=== PATIENT | female | born 1955 | race Caucasian/White ===

== ENCOUNTER 2017-07-05 05:38 | Outpatient (CLI) | payer SELFPAY ==
[~2017-07-05] VITALS: Ht 175.3 cm; Wt 90.7 kg
[~2017-07-05 05:38] MED LIST: CRESTOR40 MG PO; LISI5TAB PO; METF-380 PO; NFPRILOC40 PO; SERT50TA PO
[2017-07-05] MEDS ORDERED: AMLO5TAB2 PO ×2 (10:24)
[2017-07-05] MEDS ORDERED: GLIM4TAB PO ×2 (10:24)
[2017-07-05] MEDS ORDERED: METF500T4 PO ×2 (10:24)
[2017-07-05] MEDS ORDERED: LEVO25TA5 PO ×2 (10:24)
[2017-07-05] MEDS ORDERED: DICL75TA2 PO ×2 (10:24)
[2017-07-05] MEDS ORDERED: OMEP20TA7 PO ×2 (10:24)
[2017-07-05] MEDS ORDERED: ATEN50TA PO ×2 (10:24)
[2017-07-05] MEDS ORDERED: SERT100T8 PO ×2 (10:24)
[2017-07-05] MEDS ORDERED: ROSU10TA24 PO ×2 (10:24)
[2017-07-05] MEDS ORDERED: CHOL10003 PO ×2 (10:24)
[2017-07-05] MEDS ORDERED: LISI40TA PO ×2 (10:24)
[2017-07-08] MEDS ORDERED: CHOL20002 PO ×2 (08:57)
[2017-07-08] MEDS ORDERED: PNV1TABL81 PO ×2 (08:57)
[2017-07-08] MEDS ORDERED: TURM538C PO ×2 (08:57)
== END 2017-07-05 10:28 ==
LOC: PREOP 05:38
PROVIDERS: ATTEND Surgery
DX: Z01.818 Encounter for other preprocedural examination (principal); K63.5 Polyp of colon; Z80.0 Family history of malignant neoplasm of digestive organs

== ENCOUNTER 2017-07-08 08:27 | Day surgery (SDC) | payer OTHER ==
[~2017-07-08] VITALS: Ht 175.3 cm; Wt 90.7 kg
[~2017-07-08 08:27] MED LIST changes: +AMLO5TAB2 PO; +ATEN50TA PO; +CHOL10003 PO; +DICL75TA2 PO; +GLIM4TAB PO; +LEVO25TA5 PO; +LISI40TA PO; +METF500T4 PO; +OMEP20TA7 PO; +ROSU10TA24 PO; +SERT100T8 PO
[2017-07-08] MEDS ORDERED: NS IV 500 ML 500 ML IV PRN (08:31)
--- OUTSIDE RECORDS SUMMARY | 2017-07-08 08:31 | XMS REPORT ---
Author Author NYLA LION Organization [employer]Clinical[employer] Address Unknown Phone Unavailable Care Team Providers Care Acoustic Engineer Name Role Phone NYLA LION CP Unavailable Allergies No Known Allergies Problems Problem Type Condition Code Onset Dates Condition Status Problem Pain in thumb joint with movement of left hand M79.645 Active Problem Mixed hyperlipidemia E78.2 Active Problem Yeast dermatitis B37.2 Active Problem Thyroid mass of unclear etiology E07.89 Active Problem Essential hypertension I10 Active Problem Chronic fatigue R53.82 Active Problem Primary insomnia F51.01 Active Problem Acquired hypothyroidism E03.9 Active Problem History of anemia Z86.2 Active Problem Type 2 diabetes mellitus without complication E11.9 Active Problem Abnormal thyroid blood test R94.6 Active Problem History of thyroid nodule Z86.39 Active Medications Medication Code System Code Instructions Start Date End Date Status Dosage Zoloft [facility] [address]-29 100 MG Orally Once a day 1.5 tablet Results No Known Results Summary Purpose eClinicalWorks Submission
--- OUTSIDE RECORDS SUMMARY | 2017-07-08 08:31 | XMS REPORT ---
Author Author NYLA LION Organization [employer] Address Unknown Phone Unavailable Care Team Providers Care Shake Sawyer Name Role Phone NYLA LION CP Unavailable Allergies No Known Allergies Problems Problem Type Condition Code Onset Dates Condition Status Problem Unspecified vitamin D deficiency 268.9 Active Problem Essential hypertension I10 Active Problem Depression 311 Active Problem History of thyroid nodule Z86.39 Active Problem History of anemia Z86.2 Active Problem Abnormal thyroid blood test R94.6 Active Problem Yeast dermatitis B37.2 Active Problem Pain in thumb joint with movement of left hand M79.645 Active Problem Type 2 diabetes mellitus without complication E11.9 Active Problem Mixed hyperlipidemia E78.2 Active Problem Personal history of colonic polyps V12.72 Active Problem Depressive disorder, not elsewhere classified 311 Active Problem Lumbago 724.2 Active Problem Insomnia, unspecified 780.52 Active Problem Unspecified essential hypertension 401.9 Active Problem Other and unspecified hyperlipidemia 272.4 Active Medications No Known Medications Results No Known Results Summary Purpose eClinicalWorks Submission
--- OUTSIDE RECORDS SUMMARY | 2017-07-08 08:31 | XMS REPORT ---
Author Author NYLA LION [facility] eClinicalWorks Address Unknown Phone Unavailable Care Team Providers Care Handle Sewer Name Role Phone NYLA LION CP Unavailable Allergies No Known Allergies Problems Problem Type Condition Code Onset Dates Condition Status Problem Depressive disorder, not elsewhere classified 311 Active Problem Other and unspecified hyperlipidemia 272.4 Active Problem Insomnia, unspecified 780.52 Active Problem Mixed hyperlipidemia E78.2 Active Problem Yeast dermatitis B37.2 Active Problem Type 2 diabetes mellitus without complication E11.9 Active Problem Depression 311 Active Problem Unspecified vitamin D deficiency 268.9 Active Problem Pain in thumb joint with movement of left hand M79.645 Active Problem Essential hypertension I10 Active Assessment Mixed hyperlipidemia E78.2 Active Assessment Type 2 diabetes mellitus without complication E11.9 Active Problem Lumbago 724.2 Active Assessment Vitamin D deficiency, unspecified E55.9 Active Problem Unspecified essential hypertension 401.9 Active Assessment Fatigue R53.83 Active Problem Personal history of colonic polyps V12.72 Active Medications No Known Medications Procedures Procedure Coding System Code Date ASSAY THYROID STIM HORMONE CPT-4 78894 February 09, 2016 ASSAY OF VITAMIN D CPT-4 75844 February 09, 2016 GLYCATED HEMOGLOBIN TEST CPT-4 45330 February 09, 2016 COMPREHEN METABOLIC PANEL CPT-4 17080 February 09, 2016 LIPID PANEL CPT-4 00847 February 09, 2016 VENIPUNCT, ROUTINE* CPT-4 32676 February 09, 2016 Results Name Result Date Reference Range Unit Abnormality Flag ROUTINE VENIPUNCTURE Summary Purpose eClinicalWorks Submission
--- OUTSIDE RECORDS SUMMARY | 2017-07-08 08:31 | XMS REPORT ---
Author Author NYLA LION [facility] eClinicalWorks Address Unknown Phone Unavailable Care Team Providers Care Legal Summer Intern Name Role Phone NYLA LION Unavailable Allergies, Adverse Reactions, Alerts Substance Reaction Event Type Bactrim diarrhea Drug Allergy Ampicillin Info Not Available Drug Allergy Problems Problem Type Condition Code Onset Dates [...] Active Problem Essential hypertension I10 Active Assessment Essential hypertension I10 Active Assessment Pain in thumb joint with movement of left hand M79.645 Active Assessment Type 2 diabetes mellitus without complication E11.9 Active Problem Lumbago 724.2 Active Assessment Yeast dermatitis B37.2 Active Problem Unspecified essential hypertension 401.9 Active Assessment Mixed hyperlipidemia E78.2 Active Problem Personal history of colonic polyps V12.72 Active Medications Medication Code System Code Instructions Start Date End Date Status Dosage Crestor [facility] [address]-02 10 MG Nov 04, 2014 take 1 tablet (10 mg ) by oral route once daily Lisinopril [facility] 05375700823 40 MG 1 TAKE 1 TABLET BY ORAL ROUTE 1 TIME PER DAY TAKE IN AM Omeprazole [facility] 79622228665 20 MG TAKE 1 CAPSULE (20 MG) BY ORAL ROUTE ONCE DAILY BEFORE A MEAL Clonazepam [facility] 59777809106 1 TAKE 1 TABLET BY MOUTH DAILY AT BEDTIME FOR INSOMNIA Diclofenac Sodium [facility] 96676781364 75 TAKE 1 TABLET BY MOUTH TWICE DAILY NEEDED Vitamin D-3 [facility] 50962-75788 1000 UNIT Orally Twice a day 1 capsule Zyrtec-D [facility] 0 5-120 mg Nov 01, 2014 1 tablet by Oral route 2 times per day Flonase [facility] [address]-89 50 mcg/actuation February 26, 2014 1 sprays by Nasal route 2 times per day in each nostril Glimepiride [facility] [address]-51 4 MG Orally 2 times a day TAKE 1 TABLET BY MOUTH TWICE DAILY Diflucan [facility] [address]-09 100 MG Once a day February 26, 2014 1 tablet by Oral route 1 time per day Zoloft [facility] [address]-77 100 MG Orally Once a day 1.5 tablet MetFORMIN HCl ER [facility] 42735951273 500 TAKE 2 TABLETS BY MOUTH TWICE DAILY Atenolol [facility] 07041935625 50 MG 1 TABLET BY ORAL ROUTE 2 TIMES PER DAY Procedures Procedure Coding System Code Date Office Visit, Est Pt., Level 4 CPT-4 02964 Sep 07, 2015 GLYCATED HEMOGLOBIN TEST CPT-4 80820 Sep 07, 2015 Vital Signs Date/Time: Sep 07, 2015 Temperature 98.2 F Weight 218.4 lbs Height 69 in BMI 32.25 Index Blood Pressure Diastolic 88 mmHg Blood Pressure Systolic 152 mmHg Cardiac Monitoring Heart Rate 80 bpm Results Name Result Date Reference Range Unit Abnormality Flag A1C (IN HOUSE) Summary Purpose eClinicalWorks Submission
--- OUTSIDE RECORDS SUMMARY | 2017-07-08 08:31 | XMS REPORT ---
Author Author NYLA LION Organization [employer] Address Unknown Phone Unavailable Care Team Providers Care Taker Off Drying Kiln Name Role Phone NYLA LION CP Unavailable Allergies No Known Allergies Problems Problem Type Condition ICD-9 Code Onset Dates Condition Status Problem Unspecified essential hypertension 401.9 Active Problem Lumbago 724.2 Active Problem Diabetes mellitus without mention of complication, type II or unspecified type, uncontrolled 250.02 Active Problem Unspecified vitamin D deficiency 268.9 Active Problem Depression 311 Active Problem Depressive disorder, not elsewhere classified 311 Active Problem Personal history of colonic polyps V12.72 Active Problem Other and unspecified hyperlipidemia 272.4 Active Problem Insomnia, unspecified 780.52 Active Medications Medication Code System Code Instructions Start Date End Date Status Dosage Clonazepam [facility] 51869164168 1 TAKE 1 TABLET BY MOUTH DAILY AT BEDTIME FOR INSOMNIA Results No Known Results Summary Purpose eClinicalWorks Submission
--- OUTSIDE RECORDS SUMMARY | 2017-07-08 08:31 | XMS REPORT ---
Author Author NYLA LION [facility] eClinicalWorks Address Unknown Phone Unavailable Care Team Providers Care Underwear Trimmer Name Role Phone NYLA LION CP Unavailable [...] Instructions Start Date End Date Status Dosage Macrobid [facility] [address]-97 100 MG Orally 2 times a day Jul 15, 2015 1 capsule with food Results No Known Results Summary Purpose eClinicalWorks Submission
--- OUTSIDE RECORDS SUMMARY | 2017-07-08 08:31 | XMS REPORT ---
Author Author NYLA LION Organization [facility] Address [address] [place] [address] Care Team Providers Care Spinning Frame Fixer Name Role Phone NYLA LION Unavailable PROBLEMS Type Condition ICD9-CM Code [id number] Code Onset Dates Condition Status SNOMED Code Problem History of anemia Z86.2 Active 510046552 Problem History of thyroid nodule Z86.39 Active 549194818 Problem Abnormal thyroid blood test R94.6 Active 426433908 Problem Vitamin D deficiency, unspecified E55.9 Active 06003123 Problem Dysthymia F34.1 Active 24343763 Problem Acquired hypothyroidism E03.9 Active 209003006 Problem Chronic fatigue R53.82 Active 34530633 Problem History of colon polyps Z86.010 Active 465894420 Problem Primary insomnia F51.01 Active 3964468 Problem Yeast dermatitis B37.2 Active 38132174 Problem Type 2 diabetes mellitus without complication E11.9 Active 55902013 Problem Thyroid mass of unclear etiology E07.89 Active 049531586 Problem Essential hypertension I10 Active 72415049 Problem Mixed hyperlipidemia E78.2 Active 560043581 Problem Pain in thumb joint with movement of left hand M79.645 Active 795854089 ALLERGIES Unknown Allergies SOCIAL HISTORY No smoking Hx information available PLAN OF CARE VITAL SIGNS MEDICATIONS Medication Instructions Dosage Frequency Start Date End Date Duration Status Clonazepam 1MG Orally one time at hs 1 tablet Active RESULTS No Results PROCEDURES No Known procedures IMMUNIZATIONS No Known Immunizations
--- OUTSIDE RECORDS SUMMARY | 2017-07-08 08:31 | XMS REPORT ---
Author Author NYLA LION [facility] eClinicalWorks Address Unknown Phone Unavailable Care Team Providers Care Optical Manufacturing Technician Name Role Phone NYLA LION CP Unavailable [...] Instructions Start Date End Date Status Dosage Flagyl [facility] [address]-43 250 MG Orally 3 times a day Jun 14, 2015Jun 1 tablet Results No Known Results Summary Purpose eClinicalWorks Submission
--- OUTSIDE RECORDS SUMMARY | 2017-07-08 08:31 | XMS REPORT ---
Author Author NYLA LION [facility] eClinicalWorks Address Unknown Phone Unavailable Care Team Providers Care Director Talent Name Role Phone NYLA LION Unavailable Allergies, Adverse Reactions, Alerts Substance Reaction Event Type Bactrim diarrhea Drug Allergy Ampicillin Info Not Available Drug Allergy Problems Problem Type Condition Code Onset Dates Condition Status Problem Insomnia, unspecified 780.52 Active Assessment Vitamin D deficiency, unspecified E55.9 Active Problem Other and unspecified hyperlipidemia 272.4 Active Assessment History of anemia Z86.2 Active Problem Unspecified vitamin D deficiency 268.9 Active Problem Essential hypertension I10 Active Problem Depression 311 Active Problem History of thyroid nodule Z86.39 Active Problem History of anemia Z86.2 Active Assessment Depression 311 Active Assessment Abnormal thyroid blood test R94.6 Active Problem Abnormal thyroid blood test R94.6 Active Assessment History of thyroid nodule Z86.39 Active Problem Yeast dermatitis B37.2 Active Problem Pain in thumb joint with movement of left hand M79.645 Active Problem Type 2 diabetes mellitus without complication E11.9 Active Problem Mixed hyperlipidemia E78.2 Active Assessment Yeast dermatitis B37.2 Active Assessment Essential hypertension I10 Active Assessment Mixed hyperlipidemia E78.2 Active Assessment Type 2 diabetes mellitus without complication E11.9 Active Problem Personal history of colonic polyps V12.72 Active Problem Depressive disorder, not elsewhere classified 311 Active Problem Lumbago 724.2 Active Problem Unspecified essential hypertension 401.9 Active Medications Medication Code System Code Instructions Start Date End Date Status Dosage Clonazepam [facility] 69102178573 1MG TAKE ONE TABLET BY MOUTH ONCE DAILY AT BEDTIME NEEDED Zyrtec-D [facility] 0 5-120 mg Nov 01, 2014 1 tablet by Oral route 2 times per day Diclofenac Sodium [facility] [address]-[address] TAKE ONE TABLET BY MOUTH TWICE DAILY NEEDED Zoloft [facility] [address]-22 100 MG Orally Once a day 1.5 tablet Glimepiride [facility] [address]-60 4 MG Orally 2 times a day TAKE 1 TABLET BY MOUTH TWICE DAILY Diflucan [facility] [address]-03 100 MG Once a day February 26, 2014 1 tablet by Oral route 1 time per day Atenolol [facility] 09496985717 50 MG 1 TABLET BY ORAL ROUTE 2 TIMES PER DAY MetFORMIN HCl ER [facility] 70717646023 500 TAKE 2 TABLETS BY MOUTH TWICE DAILY Lisinopril [facility] 67807773328 40 MG 1 TAKE 1 TABLET BY ORAL ROUTE 1 TIME PER DAY TAKE IN AM Omeprazole [facility] 04871954189 20 MG TAKE 1 CAPSULE (20 MG) BY ORAL ROUTE ONCE DAILY BEFORE A MEAL Flonase [facility] 0 50 mcg/actuation February 26, 2014 1 sprays by Nasal route 2 times per day in each nostril Fluconazole [facility] 32765507926 100 orally daily 1 tablet Vitamin D-3 [facility] [address] 1000 UNIT Orally Twice a day 1 capsule Crestor [facility] [address]-31 10 MG Nov 04, 2014 take 1 tablet (10 mg ) by oral route once daily Procedures Procedure Coding System Code Date VENIPUNCT, ROUTINE* CPT-4 85119 February 14, 2016 Office Visit, Est Pt., Level 4 CPT-4 57448 February 14, 2016 COMPLETE CBC W/AUTO DIFF WBC CPT-4 69451 February 14, 2016 Vital Signs Date/Time: February 14, 2016 Temperature 98.0 F Weight 213.0 lbs Height 69 in BMI 31.45 Index Blood Pressure Diastolic 88 mmHg Blood Pressure Systolic 148 mmHg Cardiac Monitoring Heart Rate 86 bpm Results No Known Results Summary Purpose eClinicalWorks Submission
--- OUTSIDE RECORDS SUMMARY | 2017-07-08 08:31 | XMS REPORT ---
Author Author NYLA LOIN Organization eClinicalWorks Address Unknown Phone Unavailable Care Team Providers Care Entry Level Truck Driver Name Role Phone NYLA LION CP Unavailable [...] Active Problem Essential hypertension I10 Active Assessment Fatigue R53.83 Active Assessment Vitamin D deficiency, unspecified E55.9 Active Problem Lumbago 724.2 Active Assessment Mixed hyperlipidemia E78.2 Active Problem Unspecified essential hypertension 401.9 Active Assessment Type 2 diabetes mellitus without complication E11.9 Active Problem Personal history of colonic polyps V12.72 Active Medications No Known Medications Results No Known Results Summary Purpose eClinicalWorks Submission
--- OUTSIDE RECORDS SUMMARY | 2017-07-08 08:31 | XMS REPORT ---
Author Author NYLA LION Organization eClinicalWorks Address Unknown Phone Unavailable Care Team Providers Care Ink Jet Operator Name Role Phone NYLA LION CP Unavailable [...]
--- OUTSIDE RECORDS SUMMARY | 2017-07-08 08:32 | XMS REPORT ---
Author Author NYLA LION [facility] eClinicalWorks Address Unknown Phone Unavailable Care Team Providers Care Cafe Lead Name Role Phone NYLA LION CP Unavailable [...] Instructions Start Date End Date Status Dosage Diclofenac Sodium [facility] 43744461341 75MG Oct 24, 2016 TAKE ONE TABLET BY MOUTH TWICE DAILY NEEDED Clonazepam [facility] 91643506652 1MG Orally one time at hs 1 tablet [address]ine Sodium [facility] [address]-09 25 MCG Orally Once a day March 23, 2016 1 tablet Results No Known Results Summary Purpose eClinicalWorks Submission
--- OUTSIDE RECORDS SUMMARY | 2017-07-08 08:32 | XMS REPORT ---
Author Author NYLA LION Organization [facility] Address [address] [place] [address] Care Team Providers Care Clinical Program Manager Name Role Phone NYLA LION Unavailable PROBLEMS Type Condition ICD9-CM Code [id number] Code Onset Dates Condition Status SNOMED Code Problem Yeast dermatitis B37.2 Active 86648180 Problem Type 2 diabetes mellitus without complication E11.9 Active 23794678 Problem Mixed hyperlipidemia E78.2 Active 529096289 Assessment Screening for malignant neoplasm of breast Z12.39 21 Jun, 2016 Active 054693427 Problem Thyroid mass of unclear etiology E07.89 Active 137731752 Problem Essential hypertension I10 Active 59326610 Problem Pain in thumb joint with movement of left hand M79.645 Active 067201343 Problem Acquired hypothyroidism E03.9 Active 499197520 Problem Chronic fatigue R53.82 Active 17237574 Problem History of thyroid nodule Z86.39 Active 220972164 Problem History of anemia Z86.2 Active 305376648 Problem Primary insomnia F51.01 Active 4051615 Problem Abnormal thyroid blood test R94.6 Active 601552492 ALLERGIES No Known Allergies SOCIAL HISTORY No smoking Hx information available PLAN OF CARE VITAL SIGNS MEDICATIONS No Known Medications RESULTS Name Result Date Reference Range Mammogram, Bilateral Screening 2016-08-02 PROCEDURES No Known procedures IMMUNIZATIONS No Known Immunizations
--- OUTSIDE RECORDS SUMMARY | 2017-07-08 08:32 | XMS REPORT ---
Author Author NYLA LION [facility] eClinicalWorks Address Unknown Phone Unavailable Care Team Providers Care Grey Percher Name Role Phone NYLA LION Unavailable Allergies, Adverse Reactions, Alerts Substance Reaction Event Type Bactrim diarrhea Drug Allergy Ampicillin Info Not Available Drug Allergy Problems Problem Type Condition Code Onset Dates Condition Status Problem Pain in thumb joint with movement of left hand M79.645 Active Problem Mixed hyperlipidemia E78.2 Active Problem Yeast dermatitis B37.2 Active Problem Chronic fatigue R53.82 Active Problem Primary insomnia F51.01 Active Problem Acquired hypothyroidism E03.9 Active Problem History of anemia Z86.2 Active Problem Type 2 diabetes mellitus without complication E11.9 Active Problem Abnormal thyroid blood test R94.6 Active Problem History of thyroid nodule Z86.39 Active Assessment History of thyroid nodule Z86.39 Active Assessment Acquired hypothyroidism E03.9 Active Assessment Primary insomnia F51.01 Active Problem Thyroid mass of unclear etiology E07.89 Active Assessment Chronic fatigue R53.82 Active Problem Essential hypertension I10 Active Medications Medication Code System Code Instructions Start Date End Date Status Dosage Crestor [facility] [address]-95 10 MG Nov 04, 2014 take 1 tablet (10 mg ) by oral route once daily Diclofenac Sodium [facility] [address]-[address] TAKE ONE TABLET BY MOUTH TWICE DAILY NEEDED Glimepiride [facility] [address]-61 4 MG Orally 2 times a day TAKE 1 TABLET BY MOUTH TWICE DAILY Atenolol [facility] 33684222473 50 MG 1 TABLET BY ORAL ROUTE 2 TIMES PER DAY Clonazepam [facility] 86804460440 1MG Orally one time at hs 1 tablet Zyrtec-D ND 0 5-120 mg Nov 01, 2014 1 tablet by Oral route 2 times per day MetFORMIN HCl ER [facility] 18886942252 500 TAKE 2 TABLETS BY MOUTH TWICE DAILY Flonase [facility] [address]-41 50 mcg/actuation February 26, 2014 1 sprays by Nasal route 2 times per day in each nostril Omeprazole [facility] 28924181049 20 MG TAKE 1 CAPSULE (20 MG) BY ORAL ROUTE ONCE DAILY BEFORE A MEAL Diflucan [facility] [address]-42 100 MG Once a day February 26, 2014 1 tablet by Oral route 1 time per day Levothyroxine Sodium [facility] [address]-80 25 MCG Orally Once a day March 23, 2016 1 tablet Vitamin D-3 [facility] 495[address] 1000 UNIT Orally Twice a day 1 capsule Zoloft [facility] [address]-46 100 MG Orally Once a day 1.5 tablet Lisinopril [facility] 10932557961 40 MG 1 TAKE 1 TABLET BY ORAL ROUTE 1 TIME PER DAY TAKE IN AM Procedures Procedure Coding System Code Date ASSAY OF VITAMIN D CPT-4 60740 April 26, 2016 VITAMIN B-12 CPT-4 54805 April 26, 2016 ASSAY THYROID STIM HORMONE CPT-4 69698 April 26, 2016 Office Visit, Est Pt., Level 4 CPT-4 09232 April 26, 2016 VENIPUNCT, ROUTINE* CPT-4 60154 April 26, 2016 Vital Signs Date/Time: April 26, 2016 Cardiac Monitoring Heart Rate 76 bpm Weight 209.8 lbs Height 69 in Blood Pressure Diastolic 98 mmHg Blood Pressure Systolic 164 mmHg Results No Known Results Summary Purpose eClinicalWorks Submission
--- OUTSIDE RECORDS SUMMARY | 2017-07-08 08:32 | XMS REPORT ---
Author Author NYLA LION [facility] eClinicalWorks Address Unknown Phone Unavailable Care Team Providers Care Job Trainer Name Role Phone NYLA LION Unavailable Allergies, [...] History of thyroid nodule Z86.39 Active Assessment Type 2 diabetes mellitus without complication E11.9 Active Assessment Acquired hypothyroidism E03.9 Active Assessment Encounter for immunization Z23 Active Problem Thyroid mass of unclear etiology E07.89 Active Assessment Primary insomnia F51.01 Active Problem Essential hypertension I10 Active Medications Medication Code System Code Instructions Start Date End Date Status Dosage Glumetza [facility] 19314606636 500 MG TAKE 2 TABLET BY ORAL ROUTE 2 TIMES PER DAY Levothyroxine Sodium [facility] [address]-49 25 MCG Orally Once a day 1 tablet Diclofenac Sodium [facility] 43434418435 75MG Oct 24, 2016 TAKE ONE TABLET BY MOUTH TWICE DAILY NEEDED Zyrtec-D NDC 0 5-120 mg by oral route 2 times a day Nov 01, 2014 1 tablet by Oral route 2 times per day Omeprazole [facility] [address]-80 20 mg TAKE 1 CAPSULE (20 MG) BY ORAL ROUTE ONCE DAILY BEFORE A MEAL Flonase NDC 0 50 mcg/actuation by inhalation route Once a day February 26, 2014 1 sprays by Nasal route 2 times per day in each nostril Levothyroxine Sodium [facility] 27475912863 25MCG TAKE ONE TABLET BY MOUTH ONCE DAILY Glimepiride [facility] [address]-44 4 MG Orally 2 times a day TAKE 1 TABLET BY MOUTH TWICE DAILY D 1000 [facility] 34837009130 1000 UNIT 2 CAPSULE BY ORAL ROUTE 1 TIME PER DAY TOTAL OF 2000 DAILY Fluconazole [facility] 84514800534 100 orally daily 1 tablet Zoloft [facility] [address]-80 100 MG Orally Once a day 1.5 tablet Atenolol [facility] [address]-10 50 mg 1 TABLET BY ORAL ROUTE 2 TIMES PER DAY Clonazepam [facility] 78779800099 1MG Orally one time at hs 1 tablet Diflucan [facility] [address]-49 100 MG Once a day February 26, 2014 1 tablet by Oral route 1 time per day Lisinopril [facility] 59240372029 40 MG 1 TAKE 1 TABLET BY ORAL ROUTE 1 TIME PER DAY TAKE IN AM Nystatin-Triamcinolone [facility] [address]-87 100,000-0.1 unit/g-% Nov 23, 2014 1 brittani by Topical route 2 times per day for 14 day(s) PRN rash in skin folds Crestor [facility] [address]-32 10 MG Nov 04, 2014 take 1 tablet (10 mg ) by oral route once daily MetFORMIN HCl ER [facility] 43862820729 500 Orally 2 times a day 2 tablets Vitamin D-3 [facility] 23581-[address]25 1000 UNIT Orally Twice a day 1 capsule Procedures Procedure Coding System Code Date ASSAY THYROID STIM HORMONE CPT-4 69163 Aug 14, 2016 COMPREHEN METABOLIC PANEL CPT-4 14631 Aug 14, 2016 GLYCATED HEMOGLOBIN TEST CPT-4 64433 Aug 14, 2016 Office Visit, Est Pt., Level 4 CPT-4 40309 Aug 14, 2016 VENIPUNCT, ROUTINE* CPT-4 72758 Aug 14, 2016 MICROALBUMIN, SEMIQUANT CPT-4 96395 Aug 14, 2016 SINGLE IMMUNIZATION ADMIN CPT-4 78954 Aug 14, 2016 FLUARIX QUAD P-FREE 3 AND UP .50 2015 CPT-4 14039 Aug 14, 2016 Vital Signs Date/Time: Aug 14, 2016 Cardiac Monitoring Heart Rate 77 bpm Weight 215.1 lbs Height 69 in BMI 31.76 Index Blood Pressure Diastolic 84 mmHg Blood Pressure Systolic 132 mmHg Results Name Result Date Reference Range Unit Abnormality Flag TSH ----TSH 3.330 [id number] 0.450-4.500 uIU/mL CMP ----Globulin, Total 3.3 25891980 1.5-4.5 g/dL ----eGFR If Africn Am 87 [id number] >59 mL/min/1.73 ----eGFR If NonAfricn Am 75 [id number] >59 mL/min/1.73 ----Albumin, Serum 4.2 03766285 3.6-4.8 g/dL ----Sodium, Serum 140 36958598 136-144 mmol/L ----Protein, Total, Serum 7.5 65998287 6.0-8.5 g/dL ----BUN/Creatinine Ratio 19 [id number] 11-26 ----Calcium, Serum 9.6 57042737 8.7-10.3 mg/dL ----AST (SGOT) 31 52088494 0-40 IU/L ----Glucose, Serum 216 54378766 65-99 mg/dL H ----Alkaline Phosphatase, S 68 73826574 39-117 IU/L ----Bilirubin, Total 0.4 55780414 0.0-1.2 mg/dL ----Creatinine, Serum 0.83 11125165 0.57-1.00 mg/dL ----A/G Ratio 1.3 20160814 1.1-2.5 ----BUN 16 71014142 8-27 mg/dL ----Carbon Dioxide, Total 26 06860290 18-29 mmol/L ----ALT (SGPT) 28 24419287 0-32 IU/L ----Potassium, Serum 4.3 94993217 3.5-5.2 mmol/L ----Chloride, Serum 97 81121170 97-106 mmol/L A1C (IN HOUSE) ----A1C IN HOUSE 8.3 [id number] 4.3 - 5.6 % ----Previous A1c 7.3 [id number] ----Lot [id number] ----Exp date 20160814 ROUTINE VENIPUNCTURE MICROALBUMIN, URINE (IN HOUSE) ----A:C (IN HOUSE) <30mg/g [id number] ----CRE 200mg/dL 20160814 ----ALB 30mg/L 20160814 ----Color yellow [id number] ----Clarity clear 20160814 ----Exp date 20160814 ----Lot # [id number] ----MICROALBUMIN normal 20160814 Immunizations Vaccine Administration Date FLUARIX QUAD P-FREE 3 AND UP .50 2015Aug 14, 2016 Summary Purpose eClinicalWorks Submission
--- OUTSIDE RECORDS SUMMARY | 2017-07-08 08:32 | XMS REPORT ---
Author Author NYLA LION [facility] eClinicalWorks Address Unknown Phone Unavailable Care Team Providers Care Roll Over Press Operator Name Role Phone NYLA LION Unavailable Allergies, Adverse Reactions, Alerts Substance Reaction Event Type Ampicillin Info Not Available Drug Allergy Problems Problem Type Condition ICD-9 Code Onset Dates Condition Status Assessment Sleep apnea 780.57 Active Problem Unspecified essential hypertension 401.9 Active [...] 272.4 Active Problem Insomnia, unspecified 780.52 Active Assessment Pain of left thumb 729.5 Active Assessment UTI (urinary tract infection) 599.0 Active Assessment Unspecified essential hypertension 401.9 Active Medications Medication Code System Code Instructions Start Date End Date Status Dosage Clonazepam [facility] [address]-73 1 MG Orally Once a day at bedtime for insomnia 1 tablet MetFORMIN HCl ER [facility] 77575447763 500 TAKE 2 TABLETS BY MOUTH TWICE DAILY Nystatin [facility] [address]-04 100,000 unit/gram Nov 22, 2014 apply to the affected area(s) by Topical route 4-8 times per day Omeprazole [facility] 18636133068 20 MG TAKE 1 CAPSULE (20 MG) BY ORAL ROUTE ONCE DAILY BEFORE A MEAL Diflucan [facility] [address]-33 100 MG Once a day February 26, 2014 1 tablet by Oral route 1 time per day Atenolol [facility] 38969866188 50 MG 1 TABLET BY ORAL ROUTE 2 TIMES PER DAY Zoloft [facility] [address]-95 100 MG Orally Once a day 1.5 tablet Cipro [facility] [address]-23 250 MG Orally Twice a day Jun 07, 2015 Jun 12, 2015 1 tablet Crestor [facility] [address]-09 10 mg Nov 04, 2014 take 1 tablet (10 mg ) by oral route once daily Vitamin D-3 [facility] 32542-60430 1000 UNIT Orally Twice a day 1 capsule Diclofenac Sodium [facility] 23930166203 75 TAKE 1 TABLET BY MOUTH TWICE DAILY NEEDED Fluconazole [facility] 33419643938 100 TAKE 1 TABLET BY MOUTH EVERY DAY Nystatin-Triamcinolone [facility] [address]-64 100,000-0.1 unit/g-% Nov 23, 2014 1 brittani by Topical route 2 times per day for 14 day(s) PRN rash in skin folds Glimepiride [facility] 68009258757 4 TAKE 1 TABLET BY MOUTH TWICE DAILY Zyrtec-D [facility] 0 5-120 mg Nov 01, 2014 1 tablet by Oral route 2 times per day Flonase [facility] [address]-60 50 mcg/actuation February 26, 2014 1 sprays by Nasal route 2 times per day in each nostril Lisinopril [facility] 10941176171 40 MG 1 TAKE 1 TABLET BY ORAL ROUTE 1 TIME PER DAY TAKE IN AM Procedures Procedure Coding System Code Date Office Visit, Est Pt., Level 3 CPT-4 23353 Jun 07, 2015 X-RAY EXAM OF HAND CPT-4 85377 Jun 07, 2015 Vital Signs Date/Time: Jun 07, 2015 Temperature 98.4 F Weight 217.6 lbs Height 69 in BMI 32.13 Index Blood Pressure Diastolic 90 mmHg Blood Pressure Systolic 152 mmHg Cardiac Monitoring Heart Rate 76 bpm Results Name Result Date Reference Range Unit Abnormality Flag Xray : Hand, Left 3 views (IN HOUSE) Summary Purpose eClinicalWorks Submission
--- OUTSIDE RECORDS SUMMARY | 2017-07-08 08:32 | XMS REPORT ---
Author Author NYLA LION Organization eClinicalWorks Address Unknown Phone Unavailable Care Team Providers Care Forensic Science Technician Name Role Phone NYLA LION CP [...] Start Date End Date Status Dosage Zoloft [facility] [address]-74 100 MG Orally Once a day 1.5 tablet Results No Known Results Summary Purpose eClinicalWorks Submission
--- OUTSIDE RECORDS SUMMARY | 2017-07-08 08:32 | XMS REPORT ---
Author Author NYLA LION Organization eClinicalWorks Address Unknown Phone Unavailable Care Team Providers Care Kennel Attendant Name Role Phone NYLA LION CP Unavailable [...] Active Problem Insomnia, unspecified 780.52 Active Medications No Known Medications Results No Known Results Summary Purpose eClinicalWorks Submission
--- OUTSIDE RECORDS SUMMARY | 2017-07-08 08:32 | XMS REPORT ---
Author Author NYLA LION Organization eClinicalWorks Address Unknown Phone Unavailable Care Team Providers Care Clinical Unit Coordinator Name Role Phone NYLA LION CP Unavailable [...] Date End Date Status Dosage Diclofenac Sodium [facility] 90968976598 75 TAKE 1 TABLET BY MOUTH TWICE DAILY NEEDED Diflucan [facility] [place] [address]-73 100 MG Once a day February 26, 2014 1 tablet by Oral route 1 time per day Results No Known Results Summary Purpose eClinicalWorks Submission
--- OUTSIDE RECORDS SUMMARY | 2017-07-08 08:32 | XMS REPORT ---
Author Author NYLA LION Organization eClinicalWorks Address Unknown Phone Unavailable Care Team Providers Care An/Sqq 89(V)15 Sonar System Journeyman Name Role Phone NYLA LION CP Unavailable [...] Start Date End Date Status Dosage Clonazepam [facility] 25925707518 1 TAKE 1 TABLET BY MOUTH DAILY AT BEDTIME FOR INSOMNIA Results No Known Results Summary Purpose eClinicalWorks Submission
--- OUTSIDE RECORDS SUMMARY | 2017-07-08 08:33 | XMS REPORT ---
Author Author NYLA LION Organization eClinicalWorks Address Unknown Phone Unavailable Care Team Providers Care Hybrid Derivatives Trader Name Role Phone NYLA LION CP Unavailable [...] Instructions Start Date End Date Status Dosage Omeprazole [facility] [address]-98 20 mg TAKE 1 CAPSULE (20 MG) BY ORAL ROUTE ONCE DAILY BEFORE A MEAL MetFORMIN HCl ER [facility] 14275710251 500 TAKE 2 TABLETS BY MOUTH TWICE DAILY Glimepiride [facility] [address]-44 4 MG Orally 2 times a day TAKE 1 TABLET BY MOUTH TWICE DAILY Zoloft [facility] [address]-29 100 MG Orally Once a day 1.5 tablet Atenolol [facility] [address]-24 50 mg 1 TABLET BY ORAL ROUTE 2 TIMES PER DAY Lisinopril [facility] [address]-83 40 mg 1 TAKE 1 TABLET BY ORAL ROUTE 1 TIME PER DAY TAKE IN AM Crestor [facility] [address]-79 10 mg Nov 04, 2014 take 1 tablet (10 mg ) by oral route once daily Results No Known Results Summary Purpose eClinicalWorks Submission
--- OUTSIDE RECORDS SUMMARY | 2017-07-08 08:33 | XMS REPORT ---
Author Author TESFAYE MARIA [facility] eClinicalWorks Address Unknown Phone Unavailable Care Team Providers Care Rock Wool Applicator Name Role Phone TESFAYE MARIA Unavailable Allergies No Known Allergies Problems Problem [...] M79.645 Active Problem Essential hypertension I10 Active Problem Lumbago 724.2 Active Problem Unspecified essential hypertension 401.9 Active Problem Personal history of colonic polyps V12.72 Active Medications No Known Medications Results No Known Results Summary Purpose eClinicalWorks Submission
[2017-07-08 08:47] VITALS: BP 190/93
[2017-07-08] MEDS ORDERED: TURM538C PO (08:57)
[2017-07-08] MEDS ORDERED: PNV1TABL81 PO (08:57)
[2017-07-08] MEDS ORDERED: CHOL20002 PO (08:57)
[2017-07-08] MEDS ORDERED: MIDAZOLAM 2 MG/2 ML (VERSED) VIAL ONE ×4 (08:58→09:18)
--- NOTE | 2017-07-08 09:08 | History & Physicial ---
History of Present Illness History of Present Illness Reason for visit/HPI to undergo's surveillance colonoscopy. Personal history of polyps and the family history of colon cancer Date of Admission Date Seen by Provider: Jul 08, 2017 Time Seen by Provider: 09:06 I consulted on this patient on 07/08/17 09:06 Attending Physician Jarred Bean MD Admitting Physician Sri,[facility] Allergies and Home Medications Allergies Coded Allergies: lorazepam (Verified Allergy, Unknown, memory loss, 07/05/17) sulfamethoxazole (Verified Allergy, Unknown, NAUSEA, 07/05/17) trimethoprim (Verified Allergy, Unknown, NAUSEA, 07/05/17) Home Medications Amlodipine Besylate 5 Mg Tablet, 5 MG PO DAILY, (Reported) Atenolol 50 Mg Tablet, 50 MG PO BID, (Reported) Cholecalciferol (Vitamin D3) 1,000 Unit Tablet, 1,000 UNIT PO BID, (Reported) Cholecalciferol (Vitamin D3) 2,000 Unit Capsule, 2,000 UNIT PO DAILY, (Reported) Diclofenac Sodium 75 Mg Tablet.dr, 75 MG PO BID, (Reported) Glimepiride 4 Mg Tablet, 4 MG PO BID, (Reported) Levothyroxine Sodium 25 Mcg Tablet, 25 MCG PO DAILY, (Reported) Lisinopril 40 Mg Tablet, 40 MG PO DAILY, (Reported) Metformin HCl 500 Mg Tablet, 1,000 MG PO BID, (Reported) take 2 (500mg) tabs Omeprazole 20 Mg Tablet.dr, 20 MG PO DAILY, (Reported) Pnv No.122/Iron/Folic Acid 1 Each Tablet, 1 EACH PO DAILY, (Reported) Rosuvastatin Calcium 10 Mg Tablet, 10 MG PO DAILY, (Reported) Sertraline HCl 100 Mg Tablet, 150 MG PO DAILY, (Reported) take 1 1/2 of 100mg tab for 150mg total Turmeric Root Extract 538 Mg Capsule, 538 MG PO DAILY, (Reported) Past Mneebme-Zbsxzq-Vehzrq Hx Patient Social History Alcohol Use: Denies Use Recreational Drug Use: No Smoking Status: Former Smoker Former Smoker, Quit: Jul 05, 1998 Type Used: Cigarettes Recent Foreign Travel: No Contact w/other who traveled: No Recent Hopitalizations: No Recent Infectious Disease Expo: No Immunizations Up To Date Date of Pneumonia Vaccine: Oct 21, 2009 Date of Influenza Vaccine: Jul 21, 2012 Seasonal Allergies Seasonal Allergies: Yes Surgeries Yes Gallbladder, Hysterectomy Respiratory No Cardiovascular Yes Hypertension Neurological No Reproductive System : No Genitourinary No Gastrointestinal Yes Polyps Musculoskeletal Yes Arthritis Endocrine History of Endocrine Disorders: No HEENT History of HEENT Disorders: No Cancer No Psychosocial History of Psychiatric Problem: Yes Behavioral Health Disorders: Anxiety, Depression Integumentary History of Skin or Integumenta: No Constitutional: no symptoms reported EENTM: no symptoms reported Cardiovascular: no symptoms reported Gastrointestinal: no symptoms reported Genitourinary: no symptoms reported Musculoskeletal: no symptoms reported Skin: no symptoms reported Psychiatric/Neurological: No Symptoms Reported, Anxiety Physical Exam Vital Signs Vital Sign - Last 12Hours 07/08/17 08:47 Temp 98.0 Pulse 92 Resp 16 B/P (MAP) 190/93 O2 Delivery Room Air Capillary Refill : General Appearance: Anxious HEENT: Normal ENT Inspection Neck: Normal Inspection Respiratory: Lungs Clear Cardiovascular: Regular Rate, Rhythm Gastrointestinal: Non Tender, Soft Rectal: Deferred Back: Normal Inspection Extremity: Normal Inspection Neurologic/Psychiatric: Alert, Oriented x3 Skin: Warm/Dry Assessment/Plan Assessment and Plan lady with a personal history of polyps and a family history of colon cancer. For surveillance colonoscopy. Discussed in detail and is in agreement to proceed Problems: JARRED BEAN MD Jul 08, 2017 9:08 am
--- NOTE | 2017-07-08 09:08 | Conscious Sedation/ASA ---
Conscious Sedation Pre-Proced Time Reviewed: 09:08 ASA Class: 2 Airway Mallampati Classification: (pauma appropriate class) I. II. III, IV Lungs Heart ASA score ASA 1: a normal healthy patient ASA 2: a patient with a mild systemic disease (mid diabetes, controlled hypertension, obesity ASA 3: a patient with a severe systemic disease that limits activity (angina , COPD, prior Myocardial infarction) ASA 4: a patient with an incapacitating disease that is a constant threat to life (CHF, renal failure) ASA 5: a moribund patient not expected to survive 24 hrs. (ruptured aneurysm) ASA 6: a declared brain patient whose organs are being harvested. For emergent operations, add the letter E after the classification Grade 2 Sedation Plan: Discussed options with patient/fam Note The patient is an appropriate candidate to undergo the planned procedure, sedation, and anesthesia. The patient immediately re-assessed prior to indication. JARRED BEAN MD Jul 08, 2017 9:08 am
[2017-07-08] MEDS: MIDAZOLAM 2 MG/2 ML (VERSED) VIAL IVP PRN ×5 (09:15→09:50)
[2017-07-08] MEDS ORDERED: fentaNYL INJECTION 100 MCG/2 ML AMP ONE ×2 (09:18)
[2017-07-08] MEDS: fentaNYL INJECTION 100 MCG/2 ML AMP IVP PRN ×4 (09:35→09:50)
[2017-07-08] MEDS ORDERED: proPOfol 200 MG/20 ML (DIPRIVAN) VIAL IV ONE (09:46)
--- NOTE | 2017-07-08 10:13 | Endo Procedure Record ---
Endo Procedure Report Date of Procedure Jul 08, 2017 Surgeon (s) JARRED BEAN MD Post Procedure/Op Diagnosis sigmoid diverticulosis. No recurrent polyps Procedure Performed colonoscopy to cecum Description of Procedure Anesthesia Type: Conscious Sedation Specimen(s) collected/removed none Description of the Procedure Indication for procedure: This lady, with a personal history of polyps and the family history of colon cancer, came in for surveillance colonoscopy. Informed consent was obtained after reviewing the procedure in detail. Description of procedure: She was placed in left lateral decubitus position and her vital signs were monitored. Initially, we attempted to achieve conscious sedation using Versed and fentanyl. Since this did not hospitalist nocturnist physician to be effective , we had the [employer] administer propofol and achieve conscious sedation. Digital rectal examination was unremarkable. The colonoscope was introduced into the rectum and advanced with difficulty to the cecum. It was then withdrawn slowly and the mucosa examined in a systematic fashion Finding: Sigmoid diverticulosis. No recurrent polyps were found She tolerated the procedure well and was taken back to the nursing area in a stable condition. Impression: Personal history of polyps and family history of colon cancer. No polyps found on current examination. Recommend screening exam in 5 years. Copies To: OSMANY CERVANTES XAVIER M MD Jul 08, 2017 10:13 am
--- NOTE | 2017-07-08 10:14 | Discharge Inst-Simple/Standard ---
Discharge Inst-Standard Discharge Medications New, Converted or Re-Newed RX: Other Patient Instructions/Follow Up Plan of Care/Instructions/FU: repeat colonoscopy in 5 years Activity as Tolerated: Yes Discharge Diet: No Restrictions JARRED BEAN MD Jul 08, 2017 10:14 am
[2017-07-08 10:20] VITALS: BP 197/81
[2017-07-08 10:50] VITALS: BP 182/93
[2017-07-08 11:20] VITALS: BP 182/93
== END 2017-07-08 11:20 | disposition home or self-care (01) ==
LOC: ENDO 08:27
PROVIDERS: ATTEND Surgery
DX: K57.30 Diverticulosis of large intestine without perforation or abscess without bleeding (principal); Z86.010 Personal history of colon polyps; Z80.0 Family history of malignant neoplasm of digestive organs; Z87.891 Personal history of nicotine dependence; I10 Essential (primary) hypertension; F32.9 Major depressive disorder, single episode, unspecified; F41.9 Anxiety disorder, unspecified; E78.5 Hyperlipidemia, unspecified; G47.33 Obstructive sleep apnea (adult) (pediatric); E03.9 Hypothyroidism, unspecified; E11.9 Type 2 diabetes mellitus without complications; E66.01 Morbid (severe) obesity due to excess calories; Z68.29 Body mass index [BMI] 29.0-29.9, adult

== ENCOUNTER → 2017-07-22 | Outpatient (CLI) | payer OTHER ==
[~2017-07-22] MED LIST changes: +CHOL20002 PO; +PNV1TABL81 PO; +TURM538C PO
--- NOTE | 2017-07-22 20:24 | Diagnostic Imaging Report ---
Bilateral diagnostic mammogram and tomography. The current study was also evaluated with a Computer Aided Detection (CAD) system. INDICATION: Fibrocystic change. COMPARISON 08/02/2016. FINDINGS: The breasts are composed of scattered fibroglandular densities. Intramammary lymph node in the upper-outer aspect of the right breast is seen. There is a benign-appearing calcification noted in both breasts. Allowing for technique and positional differences, no suspicious change is seen. IMPRESSION: No significant change. ACR BI-RADS Category 2: Benign findings. Result letter will be mailed to the patient. Note: At least 10% of breast cancer is not imaged by mammography. Dictated by: Dictated on workstation # [id number]
== END ==
LOC: RAD 12:53
PROVIDERS: ATTEND Nurse Practitioner Family
DX: Z12.31 Encounter for screening mammogram for malignant neoplasm of breast (principal); N60.12 Diffuse cystic mastopathy of left breast
CPT/HCPCS: 77066

== ENCOUNTER → 2017-07-22 | Outpatient (CLI) | payer OTHER ==
--- NOTE | 2017-07-22 18:12 | Diagnostic Imaging Report ---
PROCEDURE: US Thyroid. TECHNIQUE: Multiple real-time grayscale images were obtained of the thyroid in various projections. INDICATION: Followup thyroid nodule. COMPARISON: Exam from 03/27/2013 is reviewed. FINDINGS: The right thyroid lobe is 5 x 2.4 x 2.2 cm. The left lobe is 4.5 x 2 x 2 cm. The right thyroid lobe demonstrates a dominant nodule measuring 2.5 x 1.5 x 2.5 cm. The left lobe demonstrates a hypoechoic nodule measuring 0.4 x 0.3 x 0.3 cm. The dominant right thyroid lobe nodule demonstrates internal vascularity and appears solid. When compared to 2013, it appears similar with no significant increase in size suggestive of benign etiology. IMPRESSION: Dominant right thyroid lobe nodule measuring 2.5 cm in size is not significantly changed from 2013 exam suggestive of benign etiology. Dictated by: Dictated on workstation # [id number]
== END ==
LOC: RAD 12:53
PROVIDERS: ATTEND Nurse Practitioner Family
DX: E04.1 Nontoxic single thyroid nodule (principal)
CPT/HCPCS: 76536

== ENCOUNTER → 2018-10-28 | Outpatient (CLI) | payer MEDICARE, MEDICAID ==
[~2018-10-28] MED LIST changes: -AMLO5TAB2 PO; +AMLO5TAB7 PO; +METF-397 PO; -METF500T4 PO; -ROSU10TA24 PO; +ROSU10TA27 PO
--- NOTE | 2018-10-28 13:05 | Diagnostic Imaging Report ---
INDICATION: Routine screening. Comparison is made with prior mammogram from 07/22/2017 and 08/02/2016. 2-D and 3-D bilateral screening mammography was performed with computer-aided Detection (CAD) system. FINDINGS: Scattered fibroglandular densities are identified bilaterally. Benign-appearing parenchymal and vascular calcifications are noted bilaterally. Intraparenchymal lymph node in the upper-outer right breast is stable. No new mass or malignant-appearing microcalcifications are seen. The axillae are unremarkable. IMPRESSION: No mammographic features suspicious for malignancy are identified. ACR BI-RADS Category 2: Benign findings. Result letter will be mailed to the patient. Note: At least 10% of breast cancer is not imaged by mammography. Dictated by: Dictated on workstation # [id number]
== END ==
LOC: RAD 10:41
PROVIDERS: ATTEND Nurse Practitioner Primary Care
DX: Z12.31 Encounter for screening mammogram for malignant neoplasm of breast (principal)
CPT/HCPCS: 77067

== ENCOUNTER → 2019-03-03 | Outpatient (CLI) | payer MEDICARE, MEDICAID ==
[~2019-03-03] MED LIST changes: -AMLO5TAB7 PO; +AMLO5TAB9 PO
--- NOTE | 2019-03-03 13:48 | Diagnostic Imaging Report ---
PROCEDURE: US Aorta Doppler. INDICATION: Abdominal pain, changes in bowel. TECHNIQUE: Grayscale sonographic images of the abdominal aorta. CORRELATION STUDY: None FINDINGS: Abdominal Aorta Proximal: Limited in visualization, maximum dimension visualized at 1.6 cm Mid: 1.6 x 1.8 cm Distal: 1.1 x 1.8 cm Common Iliac Arteries Right TOÑO: Not visualized Left TOÑO: Not visualized IMPRESSION: 1. Limited and incomplete visualization of some portions of the abdominal aorta and common iliac arteries. Visualized portions without significant aneurysmal dilatation. Dictated by: Dictated on workstation # [id number]
--- NOTE | 2019-03-03 13:57 | Diagnostic Imaging Report ---
PROCEDURE: US Bilateral lower extremity arterial. TECHNIQUE: Multiple real-time grayscale images are obtained through both lower extremity arterial systems with color Doppler imaging and color Doppler spectral analysis. INDICATION: Abdominal pain, change in bowel habits. CORRELATION STUDY: None. FINDINGS: Major arteries are patent through both lower extremities. There are predominantly triphasic with some areas of dampened biphasic waveforms noted throughout the major arteries. Scattered areas of atherosclerotic calcification are present. While there are diffusely elevated velocities, there is mild change in velocities from the [id number] aspect of the superficial femoral arteries bilaterally which could be reflective of very mild areas of narrowing. High degree of stenosis however does not appear to be suggested. There is the patency of the tibioperoneal trifurcation vessels to the level of the ankles. IMPRESSION: 1. Mild diffuse atherosclerotic changes about the major arteries of both legs. A significant velocity change to suggest high degree of stenosis does not appear to be suggested. Very mild early narrowing at the distal superficial femoral artery or popliteal artery however is not excluded. Dictated by: Dictated on workstation # [id number]
== END ==
LOC: RAD 08:48
PROVIDERS: ATTEND Internal Medicine Gastroenterology
DX: I70.203 Unspecified atherosclerosis of native arteries of extremities, bilateral legs (principal); R10.9 Unspecified abdominal pain
CPT/HCPCS: 93925; 93978

== ENCOUNTER → 2019-06-25 | Outpatient (CLI) | payer MEDICARE, MEDICAID ==
[~2019-06-25] MED LIST changes: -ROSU10TA27 PO; +ROSU10TA28 PO
== END ==
LOC: CARD 13:43
PROVIDERS: ATTEND Internal Medicine Cardiovascular Disease
CPT/HCPCS: 93306

== ENCOUNTER → 2019-07-01 | Outpatient (CLI) | payer MEDICARE, MEDICAID ==
[~2019-07-01] VITALS: Ht 175.3 cm; Wt 85.7 kg
[~2019-07-01] MED LIST changes: +CATHETER FLUSH 10 ML SYR IV PRN; +REGADENOSON 0.4 MG/5 ML SYR (LEXISCAN) IV ONE
[2019-07-01 09:20] VITALS: BP 188/87
[2019-07-01 09:23] VITALS: BP 166/76
--- NOTE | 2019-07-02 08:11 | STRESS TEST ---
DATE OF SERVICE: 07/01/2019 LEXISCAN MYOVIEW STRESS TEST REPORT REFERRING PHYSICIAN: Dr. Sharmin Sandoval. Baseline heart rate 88, baseline blood pressure 188/87. Baseline EKG is sinus rhythm with nonspecific T-wave abnormality. SUMMARY: The patient was injected with 9.9 mCi of technetium-99 Myoview and the resting images were obtained. Then, the patient received 0.4 mg of Lexiscan followed by 31.0 mCi of technetium-99 Myoview. Throughout the test, there were no EKG changes. The resting and stress images were reviewed and compared in the short axis, horizontal long axis, and vertical long axis views. Review of the images showed motion artifact affecting the quality of the images. There is breast attenuation, transient ischemic dilatation of 1.37, there is poor uptake in the mid to apical anterolateral and inferolateral wall with mild reversibility. SSS is 6, SDS is 5. On the gated images, the left ventricle appeared to be normal size with normal contractility. Calculated ejection fraction 77%. CONCLUSION: 1. The patient tolerated Lexiscan well. 2. Motion artifacts and breast attenuation affecting the quality of the images. 3. Transient ischemic dilatation of 1.37. 4. Questionable mild ischemia involving the mid to apical anterolateral and inferolateral wall. 5. Normal left ventricular size with normal contractility. Calculated ejection fraction 77%. Job ID: [id number] DocumentID: [id number] Dictated Date: 07/02/2019 07:06:50 Steward/Stewardess Smoke Room Date: 07/02/2019 08:10:53 Dictated By: NATIVIDAD FOSTER MD
== END ==
LOC: CARD 07:49
PROVIDERS: ATTEND Internal Medicine Cardiovascular Disease
DX: I35.8 Other nonrheumatic aortic valve disorders (principal); I51.89 Other ill-defined heart diseases; I10 Essential (primary) hypertension; I34.0 Nonrheumatic mitral (valve) insufficiency; E78.2 Mixed hyperlipidemia; I73.9 Peripheral vascular disease, unspecified
CPT/HCPCS: 78452; 93017

== ENCOUNTER → 2019-11-09 | Outpatient (CLI) | payer MEDICARE, MEDICAID ==
[~2019-11-09] MED LIST changes: -CATHETER FLUSH 10 ML SYR IV PRN; -GLIM4TAB PO; +GLIM4TAB3 PO; -REGADENOSON 0.4 MG/5 ML SYR (LEXISCAN) IV ONE
--- NOTE | 2019-11-09 12:20 | Diagnostic Imaging Report ---
INDICATION: Routine screening. COMPARISON: Comparison is made with prior mammograms from 10/28/2018 and 07/22/2017. 2-D and 3-D bilateral screening mammography was performed. The current study was also evaluated with a Computer Aided Detection (CAD) system. 3-D tomosynthesis was also performed and reviewed. FINDINGS: Scattered fibroglandular densities are identified bilaterally. Intraparenchymal lymph node upper outer posterior right breast is stable. Benign calcifications are noted. No spiculated mass or malignant-appearing microcalcifications are seen. Axillae are unremarkable. IMPRESSION: No mammographic features suspicious for malignancy are identified. ACR BI-RADS Category 2: Benign findings. Result letter will be mailed to the patient. Note: At least 10% of breast cancer is not imaged by mammography. Dictated by: Dictated on workstation # [id number]
== END ==
LOC: RAD 11:09
PROVIDERS: ATTEND Nurse Practitioner Primary Care
DX: Z12.31 Encounter for screening mammogram for malignant neoplasm of breast (principal)
CPT/HCPCS: 77067

== ENCOUNTER → 2020-11-10 | Outpatient (CLI) | payer MEDICARE, MEDICAID ==
[~2020-11-10] MED LIST changes: +AMLO-250 PO; -AMLO5TAB9 PO; -GLIM4TAB3 PO; +GLIM4TAB5 PO
--- NOTE | 2020-11-10 12:53 | Diagnostic Imaging Report ---
INDICATION: Routine screening. COMPARISON is made with prior mammograms from 11/17/2019 and 10/28/2018. 2-D and 3-D bilateral screening mammography was performed with CAD. Scattered fibroglandular densities are identified bilaterally. Intraparenchymal lymph node upper outer right breast is stable. Left breast is stable. There are benign parenchymal and vascular calcifications bilaterally. No spiculated mass or malignant appearing microcalcifications are seen. Axillae are unremarkable. IMPRESSION: BI-RADS Category 2 No mammographic features suspicious for malignancy are identified. ACR BI-RADS Category 2: Benign findings. Result letter will be mailed to the patient. Note: At least 10% of breast cancer is not imaged by mammography. Dictated by: Dictated on workstation # [id number]
== END ==
LOC: RAD 11:15
PROVIDERS: ATTEND Physician Assistant
DX: Z12.31 Encounter for screening mammogram for malignant neoplasm of breast (principal)
CPT/HCPCS: 77063; 77067

== ENCOUNTER → 2021-03-23 | Outpatient (CLI) | payer MEDICARE, MEDICAID ==
[~2021-03-23] MED LIST changes: -LISI40TA PO; +LISI40TA9 PO; +SERT-414 PO; -SERT100T8 PO
== END ==
LOC: SLEEP 07:58
PROVIDERS: ATTEND Nurse Practitioner
DX: G47.33 Obstructive sleep apnea (adult) (pediatric) (principal); G47.10 Hypersomnia, unspecified; G47.00 Insomnia, unspecified; Z20.822 Contact with and (suspected) exposure to COVID-19
CPT/HCPCS: 87635

== ENCOUNTER 2021-04-04 12:36 | Outpatient (CLI) | payer MEDICARE, MEDICAID | END 2021-04-04 12:58 | LOC: SLEEP 12:36 | PROVIDERS: ATTEND Nurse Practitioner | DX: G47.33 Obstructive sleep apnea (adult) (pediatric) (principal); G47.10 Hypersomnia, unspecified | CPT/HCPCS: G0399 ==

== ENCOUNTER → 2021-04-26 | Outpatient (CLI) | payer MEDICARE, MEDICAID | LOC: LABNPT 07:17 | PROVIDERS: ATTEND Otolaryngology Otolaryngology/Facial Plastic Surgery | DX: G47.33 Obstructive sleep apnea (adult) (pediatric) (principal); Z20.822 Contact with and (suspected) exposure to COVID-19 | CPT/HCPCS: 87635 ==

== ENCOUNTER 2021-04-28 19:37 | Outpatient (CLI) | payer MEDICARE, MEDICAID | END 2021-04-29 06:45 | disposition home or self-care (01) | LOC: SLEEP 19:37 | PROVIDERS: ATTEND Otolaryngology Otolaryngology/Facial Plastic Surgery | DX: G47.33 Obstructive sleep apnea (adult) (pediatric) (principal); G47.00 Insomnia, unspecified; G47.36 Sleep related hypoventilation in conditions classified elsewhere; Z20.822 Contact with and (suspected) exposure to COVID-19 | CPT/HCPCS: 95811 ==

== ENCOUNTER 2022-03-21 10:38 | Inpatient (IN) | payer MEDICARE, MEDICAID ==
[~2022-03-21] VITALS: Ht 175 cm; Wt 87.8 kg
[~2022-03-21 10:38] MED LIST changes: +OMEP20TA56 PO; -OMEP20TA7 PO
[2022-03-21] MEDS ORDERED: morphine INJ 10 MG/ML 1ML (SYR OR VIAL) IVP STA (10:51)
[2022-03-21] MEDS ORDERED: ASPIRIN 81 MG CHEW (CHILDREN'S ASA) PO ONE (11:00)
[2022-03-21 11:04] LABS: BASOPHILS % (AUTO) 0 % (0-10); EOSINOPHILS # (AUTO) 0.1 10^3/uL (0.0-0.3); EOSINOPHILS % (AUTO) 1 % (0-10); HEMATOCRIT 41 % (35-52); HEMOGLOBIN 13.3 g/dL (11.5-16.0); LYMPHOCYTES # (AUTO) 2.3 10^3/uL (1.0-4.0); LYMPHOCYTES % (AUTO) 25 % (12-44); MEAN CORPUSCULAR HEMOGLOBIN 27 pg (25-34); MEAN CORPUSCULAR HGB CONC 32 g/dL (32-36); MEAN CORPUSCULAR VOLUME 84 fL (80-99); MEAN PLATELET VOLUME 11.9 fL (9.0-12.2); MONOCYTES # (AUTO) 0.6 10^3/uL (0.0-1.0); MONOCYTES % (AUTO) 6 % (0-12); NEUTROPHILS % (AUTO) 67 % (42-75); PLATELET COUNT 152 10^3/uL (130-400); WHITE BLOOD COUNT 9.1 10^3/uL (4.3-11.0)
--- NOTE | 2022-03-21 11:11 | ED Chest Pain ---
General Chief Complaint: Chest Pain Stated Complaint: CP Nursing Triage Note: ARRIVED VIA AMB TO ROOM 03 WITH CHEST PAIN STARTING ON SATURDAY AND STATES IT CAME BACK TODAY. Source: patient, old records Exam Limitations: no limitations History of Present Illness Date Seen by Provider: Mar 21, 2022 Time Seen by Provider: 10:54 Initial Comments This is a 66-year-old female with a history of coronary artery disease, hypertension, hyperlipidemia, and lov-dddznyu-joxmqaawk diabetes who presented to the ER with complaints of chest pain. States that she had chest pain on Saturday lasting 10 minutes that started in her upper abdomen as a stabbing sensation and it radiated up into the middle of her chest, she took 4 baby aspirin at that time and her symptoms resolved. Today she was walking around the store when she felt a "heaviness" in the middle of her chest, she took 2 baby aspirin and presented to the ER. States her symptoms have resolved after taking baby aspirin. Denies diaphoresis, nausea, vomiting, shortness of breath, fever, chills, cough, abdominal pain. Allergies and Home Medications Allergies Coded Allergies: lorazepam (Verified Allergy, Unknown, memory loss, 07/05/17) sulfamethoxazole (Verified Allergy, Unknown, NAUSEA, 07/05/17) trimethoprim (Verified Allergy, Unknown, NAUSEA, 07/05/17) Patient Home Medication List Home Medication List Reviewed: Yes Amlodipine Besylate (Amlodipine Besylate) 5 Mg Tablet, 5 MG PO DAILY, (Reported) Entered as Reported by: HATTIE PRATT on 07/05/17 1024 Atenolol (Atenolol) 50 Mg Tablet, 50 MG PO BID, (Reported) Entered as Reported by: HATTIE PRATT on 07/05/17 1024 Cholecalciferol (Vitamin D3) (Vitamin D3) 1,000 Unit Tablet, 1,000 UNIT PO BID, (Reported) Entered as Reported by: HATTIE PRATT on 07/05/17 1024 Cholecalciferol (Vitamin D3) (Vitamin D-3) 2,000 Unit Capsule, 2,000 UNIT PO DAILY, (Reported) Entered as Reported by: JULIET ACKERMAN on 07/08/17 0857 Diclofenac Sodium (Diclofenac Sodium) 75 Mg Tablet.dr, 75 MG PO BID, (Reported) Entered as Reported by: HATTIE PRATT on 07/05/17 1024 Glimepiride (Glimepiride) 4 Mg Tablet, 4 MG PO BID, (Reported) Entered as Reported by: HATTIE PRATT on 07/05/17 1024 Levothyroxine Sodium (Levothyroxine Sodium) 25 Mcg Tablet, 25 MCG PO DAILY, (Re ported) Entered as Reported by: HATTIE PRATT on 07/05/17 1024 Lisinopril (Lisinopril) 40 Mg Tablet, 40 MG PO DAILY, (Reported) Entered as Reported by: HATTIE PRATT on 07/05/17 1024 Metformin HCl (Metformin HCl) 500 Mg Tablet, 1,000 MG PO BID, (Reported) Entered as Reported by: HATTIE PRATT on 07/05/17 1024 Omeprazole (Omeprazole) 20 Mg Tablet.dr, 20 MG PO DAILY, (Reported) Entered as Reported by: HATTIE PRATT on 07/05/17 1024 Pnv No.122/Iron/Folic Acid ( Multi Tablet) 1 Each Tablet, 1 EACH PO DAILY, (Reported) Entered as Reported by: JULIET ACKERMAN on 07/08/17 0857 Rosuvastatin Calcium (Rosuvastatin Calcium) 10 Mg Tablet, 10 MG PO DAILY, (Reported) Entered as Reported by: HATTIE PRATT on 07/05/17 1024 Sertraline HCl (Sertraline HCl) 100 Mg Tablet, 150 MG PO DAILY, (Reported) Entered as Reported by: HATTIE PRATT on 07/05/17 1024 Turmeric Root Extract (Turmeric) 538 Mg Capsule, 538 MG PO DAILY, (Reported) Entered as Reported by: JULIET ACKERMAN on 07/08/17 0857 Review of Systems Review of Systems Constitutional: no symptoms reported EENTM: No Symptoms Reported Respiratory: See HPI Cardiovascular: See HPI Gastrointestinal: No Symptoms Reported Genitourinary: No Symptoms Reported Musculoskeletal: no symptoms reported Skin: no symptoms reported Psychiatric/Neurological: No Symptoms Reported Endocrine: No Symptoms Reported Hematologic/Lymphatic: No Symptoms Reported Past Zsmwwlp-Fhbbfd-Rdpmza Hx Patient Social History Tobacco Use?: No Substance use?: No Alcohol Use?: No Immunizations Up To Date COVID19 Vaccine Employee Adviser: MICHELE Seasonal Allergies Seasonal Allergies: Yes Past Medical History Surgeries: Yes Gallbladder, Hysterectomy Respiratory: No Sleep Apnea Cardiac: Yes Hypertension Neurological: No Genitourinary: No Gastrointestinal: Yes Polyps Musculoskeletal: Yes Arthritis Endocrine: No HEENT: No Cancer: No Psychosocial: Yes Anxiety, Depression Integumentary: No Physical Exam Vital Signs Vital Signs - First Documented 03/21/22 10:51 Temp 36.3 Pulse 80 Resp 16 B/P (MAP) 174/105 (128) Pulse Ox 98 O2 Delivery Room Air Capillary Refill : Less Than 3 Seconds Height, Weight, BMI Height: 5'9.00" Weight: 189lbs. 0.0oz. 85.300816uf; 27.00 BMI Method: General Appearance: No Apparent Distress, WD/WN HEENT: PERRL/EOMI, Normal ENT Inspection, Pharynx Normal, Moist Mucous Membranes Neck: Full Range of Motion, Normal Inspection, Non Tender, Supple Respiratory: Chest Non Tender, Lungs Clear, Normal Breath Sounds, No Accessory Muscle Use, No Respiratory Distress Cardiovascular: Regular Rate, Rhythm, No Edema, No Murmur Gastrointestinal: Normal Bowel Sounds, Non Tender, Soft Extremity: Normal Capillary Refill, Normal Inspection, Normal Range of Motion Neurologic/Psychiatric: Alert, Oriented x3, No Motor/Sensory Deficits, Normal Mood/Affect Skin: Normal Color, Warm/Dry Progress/Results/Core Measures Results/Orders Lab Results Laboratory Tests Test 03/21/22 10:54 Range/Units White Blood Count 9.1 4.3-11.0 10^3/uL Red Blood Count 4.87 3.80-5.11 10^6/uL Hemoglobin 13.3 11.5-16.0 g/dL Hematocrit 41 35-52 % Mean Corpuscular Volume 84 80-99 fL Mean Corpuscular Hemoglobin 27 25-34 pg Mean Corpuscular Hemoglobin Concent 32 32-36 g/dL Red Cell Distribution Width 15.5 H 10.0-14.5 % Platelet Count 152 130-400 10^3/uL Mean Platelet Volume 11.9 9.0-12.2 fL Immature Granulocyte % (Auto) 0 % Neutrophils (%) (Auto) 67 42-75 % Lymphocytes (%) (Auto) 25 12-44 % Monocytes (%) (Auto) 6 0-12 % Eosinophils (%) (Auto) 1 0-10 % Basophils (%) (Auto) 0 0-10 % Neutrophils # (Auto) 6.0 1.8-7.8 10^3/uL Lymphocytes # (Auto) 2.3 1.0-4.0 10^3/uL Monocytes # (Auto) 0.6 0.0-1.0 10^3/uL Eosinophils # (Auto) 0.1 0.0-0.3 10^3/uL Basophils # (Auto) 0.0 0.0-0.1 10^3/uL Immature Granulocyte # (Auto) 0.0 0.0-0.1 10^3/uL Prothrombin Time 13.0 12.2-14.7 SEC INR Comment 0.9 0.8-1.4 Activated Partial Thromboplast Time 33 24-35 SEC D-Dimer 2.49 H 0.00-0.49 UG/ML Sodium Level 139 135-145 MMOL/L Potassium Level 4.4 3.6-5.0 MMOL/L Chloride Level 102 98-107 MMOL/L Carbon Dioxide Level 22 21-32 MMOL/L Anion Gap 15 H 5-14 MMOL/L Blood Urea Nitrogen 16 7-18 MG/DL Creatinine 0.87 0.60-1.30 MG/DL Estimat Glomerular Filtration Rate 73 BUN/Creatinine Ratio 18 Glucose Level 158 H 70-105 MG/DL Calcium Level 9.7 8.5-10.1 MG/DL Corrected Calcium 9.5 8.5-10.1 MG/DL Magnesium Level 2.0 1.6-2.4 MG/DL Total Bilirubin 0.4 0.1-1.0 MG/DL Aspartate Amino Transf (AST/SGOT) 26 5-34 U/L Alanine Aminotransferase (ALT/SGPT) 22 0-55 U/L Alkaline Phosphatase 66 40-136 U/L Total Creatine Kinase 47 29-168 U/L Creatine Kinase MB 2.4 <6.6 NG/ML Myoglobin 36.4 10.0-92.0 NG/ML Troponin I < 0.028 <0.028 NG/ML B-Type Natriuretic Peptide 179.2 H <100.0 PG/ML Total Protein 8.1 6.4-8.2 GM/DL Albumin 4.3 3.2-4.5 GM/DL My Orders Orders - [facility] Cbc With Automated Diff (03/21/22 10:51) Magnesium (03/21/22 10:51) Chest 1 View, Ap/Pa Only (03/21/22 10:51) Comprehensive Metabolic Panel (03/21/22 10:51) Myoglobin Serum (03/21/22 10:51) Protime With Inr (03/21/22 10:51) Partial Thromboplastin Time (03/21/22 10:51) O2 (03/21/22 10:51) Monitor-Rhythm Ecg Trace Only (03/21/22 10:51) Ed Iv/Invasive Line Start (03/21/22 10:51) Creatine Kinase (03/21/22 10:51) Creatine Kinase Mb (03/21/22 10:51) Bnp Irina (03/21/22 10:51) Fibrin Degradation Products (03/21/22 10:51) Troponin I Irina (03/21/22 10:51) Aspirin Chewable Tablet (Baby Aspirin Ch (03/21/22 11:00) Morphine Injection (Morphine Injection (03/21/22 10:51) Ct Angio Chest W (03/21/22 11:43) Iohexol Injection (Omnipaque 350 Mg/Ml 1 (03/21/22 11:45) Received Contrast (Hold Metformin- Contr (03/21/22 11:45) Sodium Chloride Flush (Catheter Flush Sy (03/21/22 11:45) Ns (Ivpb) (Sodium Chloride 0.9% Ivpb Bag (03/21/22 11:45) Medications Given in ED Current Medications Medications Dose Ordered Sig/Maisha Route Start Time Stop Time Status Last Admin Dose Admin Aspirin 162 mg ONCE ONCE PO 03/21/22 11:00 03/21/22 11:01 DC 03/21/22 11:01 162 MG Iohexol 100 ml ONCE ONCE IV 03/21/22 11:45 03/21/22 11:47 DC 03/21/22 11:54 73 ML Sodium Chloride 10 ml NEEDED PRN IV 03/21/22 11:45 03/21/22 11:54 10 ML Sodium Chloride 100 ml ONCE ONCE IV 03/21/22 11:45 03/21/22 11:47 DC 03/21/22 11:54 80 ML Vital Signs/I&O 03/21/22 10:51 Temp 36.3 Pulse 80 Resp 16 B/P (MAP) 174/105 (128) Pulse Ox 98 O2 Delivery Room Air 2 Blood Pressure Mean: 128 Progress Progress Note #1: Progress Note Patient examined and in no acute distress. States that her's chest pain has resolved since she is taking her 2 baby aspirin. However we will go ahead and give her the additional 2 baby aspirin as well as 4 mg of morphine at this time. Cardiac and chest pain protocol initiated. She is resting comfortably. Her EKG is relatively unchanged from her prior, no acute ST elevation or depression appreciated. Labs reviewed, her cardiac markers are within normal limits which are reassuring. However her prior chemical stress test on 07/01/2019 shows questionable mild ischemia involving the mid to apical anterior lateral and inferior lateral wall. She does have a marked elevated D-dimer of 2.49. Reviewed risk and benefits of obtaining CT angio at this time, she is agreeable to CT angio to rule out any pulmonary emboli. Progress Note #2: Time: 12:[address] Gaviria presented to the ER at this time and discussed findings with patient, he recommends cardiac catheterization today. Patient is agreeable with this plan. Initial ECG Impression Date: Mar 21, 2022 Initial ECG Impression Time: 10:49 Initial ECG Rate: 81 Initial ECG Rhythm: Normal Sinus Initial ECG Impression: Nonspecific Changes Initial ECG Comparisson: No Previous ECG Available Diagnostic Imaging Comments [facility] [place] NAME: ASHKAN GALINDO [facility] REC#: [id number] PT STATUS: REG ER : 1955 PHYSICIAN: [facility] ADMIT DATE: 03/21/22/ER Draft Date of Exam:03/21/22 CHEST 1 VIEW, AP/PA ONLY INDICATION: Chest pain. EXAMINATION: Chest 03/21/2022 FINDINGS: The heart is prominent. Pulmonary vasculature is unremarkable. Lungs and pleural spaces clear. No infiltrates, effusions or pneumothorax. IMPRESSION: 1. Mild cardiomegaly. Otherwise negative chest. Dictated on workstation # [id number] Dict: 03/21/22 1112 Trans: 03/21/22 [id number] Interpreted by: TRISHA RAMON MD Electronically signed by: Comments [facility] NAME: ASHKAN GALINDO [facility] REC#: [id number] PT STATUS: REG ER : 1955 PHYSICIAN: PIERRE MAC APRN ADMIT DATE: 03/21/22/ER Draft Date of Exam:03/21/22 CT ANGIO CHEST W PROCEDURE: CT angiography of the chest with contrast. TECHNIQUE: Multiple contiguous axial images were obtained through the chest after uneventful bolus administration of intravenous contrast. 3D reconstructed CTA MIP acquisitions were also performed. Auto Exposure Controls were utilized during the CT exam to meet ALARA standards for radiation dose reduction. DATE: March 21, 2022. COMPARISON: Chest radiograph March 21, 2022. INDICATION: 66-year-old female, chest pain. Elevated d-dimer. FINDINGS: There is no identified pulmonary nodule or lung mass. There is mild right lower lobe and left lower lobe bronchiectasis. There are peripheral reticular opacities in the right middle lobe, lingula, and lower lobes likely reflecting mild scarring and or atelectasis. There is no characteristic peripheral honeycombing. There are no areas of groundglass lung attenuation. There is no otherwise noted focal airspace consolidation. The trachea is normal in caliber. There is no pneumothorax. There is no pleural effusion. There is no identified pulmonary embolus. The main pulmonary diameter is within normal limits. There are coronary artery calcifications and additional areas of atherosclerotic disease. The heart is not enlarged. There is no pericardial effusion. There is no identified abnormally enlarged mediastinal, hilar, or axillary lymph node meeting CT size criteria for adenopathy. The gallbladder is surgically absent. There is a low-attenuation left renal lesion on axial image 162 which measures 2.0 cm in size within internal attenuation value of 9 Hounsfield units compatible with a benign cyst. Additional evaluation of the imaged portions of the upper abdomen is grossly unremarkable. There are multilevel degenerative changes of the spine. There is advanced left glenohumeral arthritis. There is no identified acute bony abnormality. IMPRESSION: CT CHEST. 1. No evidence of pulmonary embolus or other acute cardiopulmonary abnormality. 2. Mild probable findings of interstitial lung disease without findings meeting diagnostic criteria for definite diagnosis of UIP. Dictated on workstation # [id number] Departure Communication (Admissions) Time/Spoke to Admitting Phy: 12:31 Dr. Gaviria Impression Primary Impression: Cardiac angina Disposition: ADMITTED INPATIENT Condition: Stable Admissions Decision to Admit Reason: Admit from ER (General) Decision to Admit/Date: Mar 21, 2022 Time/Decision to Admit Time: 12:30 Departure-Patient Inst. Referrals: [facility] (PCP) Primary Care Physician MELINDA MONTERROSO (Family) Primary Care Physician PIERRE MAC APRN Mar 21, 2022 11:11
--- NOTE | 2022-03-21 11:14 | Diagnostic Imaging Report ---
INDICATION: Chest pain. EXAMINATION: Chest 03/21/2022 FINDINGS: The heart is prominent. Pulmonary vasculature is unremarkable. Lungs and pleural spaces clear. No infiltrates, effusions or pneumothorax. IMPRESSION: 1. Mild cardiomegaly. Otherwise negative chest. Dictated by: Dictated on workstation # [id number]
[2022-03-21 11:17] LABS: ALBUMIN 4.3 GM/DL (3.2-4.5)
[2022-03-21 11:18] LABS: INR 0.9 (0.8-1.4); POTASSIUM 4.4 MMOL/L (3.6-5.0)
[2022-03-21 11:19] LABS: CALCIUM 9.7 MG/DL (8.5-10.1)
[2022-03-21 11:20] LABS: TOTAL PROTEIN 8.1 GM/DL (6.4-8.2)
[2022-03-21 11:22] LABS: BILIRUBIN,TOTAL 0.4 MG/DL (0.1-1.0)
[2022-03-21 11:24] LABS: CREATININE SERUM 0.87 MG/DL (0.60-1.30)
[2022-03-21 11:34] LABS: CREATINE KINASE MB 2.4 NG/ML (<6.6)
[2022-03-21] MEDS ORDERED: NS 100 ML (IVPB) BAG IV ONE (11:45)
[2022-03-21] MEDS ORDERED: CATHETER FLUSH 10 ML SYR IV PRN (11:45)
[2022-03-21] MEDS ORDERED: HOLD METFORMIN - RECEIVED CONTRAST 20 ML VIAL IV SCH (11:45)
[2022-03-21] MEDS ORDERED: IOHEXOL 350 MG/ML 100 ML (OMNIPAQUE 350) VIAL IV ONE (11:45)
--- NOTE | 2022-03-21 12:11 | Diagnostic Imaging Report ---
PROCEDURE: CT angiography of the chest with contrast. TECHNIQUE: Multiple contiguous axial images were obtained through the chest after uneventful bolus administration of intravenous contrast. 3D reconstructed CTA MIP acquisitions were also performed. Auto Exposure Controls were utilized during the CT exam to meet ALARA standards for radiation dose reduction. DATE: March 21, 2022. COMPARISON: Chest radiograph March 21, 2022. INDICATION: 66-year-old female, chest pain. Elevated d-dimer. FINDINGS: There is no identified pulmonary nodule or lung mass. There is mild right lower lobe and left lower lobe bronchiectasis. There are peripheral reticular opacities in the right middle lobe, lingula, and lower lobes likely reflecting mild scarring and or atelectasis. There is no characteristic peripheral honeycombing. There are no areas of groundglass lung attenuation. There is no otherwise noted focal airspace consolidation. The trachea is normal in caliber. There is no pneumothorax. There is no pleural effusion. There is no identified pulmonary embolus. The main pulmonary diameter is within normal limits. There are coronary artery calcifications and additional areas of atherosclerotic disease. The heart is not enlarged. There is no pericardial effusion. There is no identified abnormally enlarged mediastinal, hilar, or axillary lymph node meeting CT size criteria for adenopathy. The gallbladder is surgically absent. There is a low-attenuation left renal lesion on axial image 162 which measures 2.0 cm in size within internal attenuation value of 9 Hounsfield units compatible with a benign cyst. Additional evaluation of the imaged portions of the upper abdomen is grossly unremarkable. There are multilevel degenerative changes of the spine. There is advanced left glenohumeral arthritis. There is no identified acute bony abnormality. IMPRESSION: CT CHEST. 1. No evidence of pulmonary embolus or other acute cardiopulmonary abnormality. 2. Mild probable findings of interstitial lung disease without findings meeting diagnostic criteria for definite diagnosis of UIP. Dictated by: Dictated on workstation # [id number]
[2022-03-21] MEDS ORDERED: LIDOCAINE 1% INJ 20 ML VIAL ONE (12:55)
[2022-03-21] MEDS ORDERED: HEParin (CATH LAB) 2,000 ML IV ONE (12:56)
--- NOTE | 2022-03-21 12:58 | Consultation-Cardiology ---
HPI-Cardiology Cardiology Consultation Date of Consultation 03/21/22 Date of Admission Time Seen by Provider: 12:54 Indication: Chest pain HPI 66 years old lady with history of hypertension, hyperlipidemia, questionable coronary artery disease, had an abnormal stress test. Patient has been doing well until recently when she started to have multiple episodes of chest pain described as dull in nature in the retrosternal area not associated with exertion, lasting for up to 10 minutes. Had another episode to day, she took aspirin and came to the emergency room. On my evaluation she was feeling better, laying down in bed. No active pain was reported. Home Medications & Allergies Allergies: Coded Allergies: lorazepam (Verified Allergy, Unknown, memory loss, 07/05/17) sulfamethoxazole (Verified Allergy, Unknown, NAUSEA, 07/05/17) trimethoprim (Verified Allergy, Unknown, NAUSEA, 07/05/17) Home Medication List Reviewed: Yes OVG-Ihzabr-Rgzfbr Hx Patient Social History Marital Status: Employed/Student: employed Type Used: Cigarettes Recent Hopitalizations: No Have you traveled recently?: No Alcohol Use?: No Immunizations Up To Date Date of Pneumonia Vaccine: Oct 21, 2009 Date of Influenza Vaccine: Jul 21, 2012 Past Medical History Discussed below Family Medical History Family Medical Hx Noncontributory Review of Systems-General Review of Systems Constitutional: no symptoms reported EENTM: see HPI, no symptoms reported Respiratory: no symptoms reported, see HPI Cardiovascular: see HPI, chest pain; No edema, No Hx of Intervention, No palpitations, No syncope, No vascular heart diseas, No other Gastrointestinal: no symptoms reported, see HPI Genitourinary: no symptoms reported, see HPI Musculoskeletal: no symptoms reported Skin: no symptoms reported Psychiatric/Neurological: No Symptoms Reported Reviewed Test Results Reviewed Test Results Lab Laboratory Tests Test 03/21/22 10:54 Range/Units White Blood Count 9.1 4.3-11.0 10^3/uL Red Blood Count 4.87 3.80-5.11 10^6/uL Hemoglobin 13.3 11.5-16.0 g/dL Hematocrit 41 35-52 % Mean Corpuscular Volume 84 80-99 fL Mean Corpuscular Hemoglobin 27 25-34 pg Mean Corpuscular Hemoglobin Concent 32 32-36 g/dL Red Cell Distribution Width 15.5 H 10.0-14.5 % Platelet Count 152 130-400 10^3/uL Mean Platelet Volume 11.9 9.0-12.2 fL Immature Granulocyte % (Auto) 0 % Neutrophils (%) (Auto) 67 42-75 % Lymphocytes (%) (Auto) 25 12-44 % Monocytes (%) (Auto) 6 0-12 % Eosinophils (%) (Auto) 1 0-10 % Basophils (%) (Auto) 0 0-10 % Neutrophils # (Auto) 6.0 1.8-7.8 10^3/uL Lymphocytes # (Auto) 2.3 1.0-4.0 10^3/uL Monocytes # (Auto) 0.6 0.0-1.0 10^3/uL Eosinophils # (Auto) 0.1 0.0-0.3 10^3/uL Basophils # (Auto) 0.0 0.0-0.1 10^3/uL Immature Granulocyte # (Auto) 0.0 0.0-0.1 10^3/uL Prothrombin Time 13.0 12.2-14.7 SEC INR Comment 0.9 0.8-1.4 Activated Partial Thromboplast Time 33 24-35 SEC D-Dimer 2.49 H 0.00-0.49 UG/ML Sodium Level 139 135-145 MMOL/L Potassium Level 4.4 3.6-5.0 MMOL/L Chloride Level 102 98-107 MMOL/L Carbon Dioxide Level 22 21-32 MMOL/L Anion Gap 15 H 5-14 MMOL/L Blood Urea Nitrogen 16 7-18 MG/DL Creatinine 0.87 0.60-1.30 MG/DL Estimat Glomerular Filtration Rate 73 BUN/Creatinine Ratio 18 Glucose Level 158 H 70-105 MG/DL Calcium Level 9.7 8.5-10.1 MG/DL Corrected Calcium 9.5 8.5-10.1 MG/DL Magnesium Level 2.0 1.6-2.4 MG/DL Total Bilirubin 0.4 0.1-1.0 MG/DL Aspartate Amino Transf (AST/SGOT) 26 5-34 U/L Alanine Aminotransferase (ALT/SGPT) 22 0-55 U/L Alkaline Phosphatase 66 40-136 U/L Total Creatine Kinase 47 29-168 U/L Creatine Kinase MB 2.4 <6.6 NG/ML Myoglobin 36.4 10.0-92.0 NG/ML Troponin I < 0.028 <0.028 NG/ML B-Type Natriuretic Peptide 179.2 H <100.0 PG/ML Total Protein 8.1 6.4-8.2 GM/DL Albumin 4.3 3.2-4.5 GM/DL Physical Exam Physical Exam Vital Signs Vital Signs - First Documented 03/21/22 10:51 Temp 36.3 Pulse 80 Resp 16 B/P (MAP) 174/105 (128) Pulse Ox 98 O2 Delivery Room Air Capillary Refill : Less Than 3 Seconds Height, Weight, BMI Height: 5'9.00" Weight: 189lbs. 0.0oz. 85.285031te; 27.00 BMI Method: General Appearance: No Apparent Distress, WD/WN Eyes: Bilateral Eye Normal Inspection, Bilateral Eye PERRL, Bilateral Eye EOMI HEENT: PERRL/EOMI, Normal ENT Inspection, Pharynx Normal, Moist Mucous Membranes Neck: Full Range of Motion, Normal Inspection, Non Tender, Supple Respiratory: Chest Non Tender, Lungs Clear, Normal Breath Sounds, No Accessory Muscle Use, No Respiratory Distress Cardiovascular: Regular Rate, Rhythm, No Edema, No Murmur Gastrointestinal: Normal Bowel Sounds, Non Tender, Soft Back: Normal Inspection, No CVA Tenderness, No Vertebral Tenderness Extremity: Normal Capillary Refill, Normal Inspection, Normal Range of Motion Neurologic/Psychiatric: Alert, Oriented x3, No Motor/Sensory Deficits, Normal Mood/Affect Skin: Normal Color, Warm/Dry Lymphatic: No Adenopathy A/P-Cardiology Admission Diagnosis Chest pain Coronary artery disease Hypertension Hyperlipidemia Assessment/Plan Chest pain, nonspecific etiology, atypical in presentation. Patient has an abnormal stress test from June 2019 and cardiac catheterization was advised at that point but patient declined it. I am planning to proceed with cardiac catheterization possible PTCA. Coronary artery disease, Abnormal stress test on July 01, 2019 revealing questionable mild ischemia of mid to apical anterolateral and inferolateral wall, normal LV, EF 77%, TID=1.37. Planning to proceed with cardiac catheterization possible PTCA. Echocardiogram done on June 25, 2019 showing normal left ventricular size and systolic function estimated ejection fraction 6570 percent, grade 1 diastolic dysfunction, patent flynn ovale. Pulmonary hypertension with PA pressure 45-50 mmHg Lower extremity pain, ultrasound was done in February 2019 showing mild diffuse atherosclerotic changes with no significant obstructive disease. Still having some peripheral neuropathy pain. Hypertension, controlled on current medication, continue to monitor. Hyperlipidemia maintained on Crestor, monitor lipids Nonobstructive carotid artery stenosis, continue to monitor Moderate sleep apnea, sleep study was done in April 2021, started using CPAP Diabetes mellitus, followed and managed by primary care physician, will hold metformin for 48 hours Generalized fatigue and loss of energy. Dyspnea on exertion, multiple risk factors for coronary artery disease, planning for left heart catheterization. Gastroparesis, diabetic, followed by Dr. Villarreal History of hysterectomy, cholecystectomy NATIVIDAD FOSTER MD Mar 21, 2022 12:58
[2022-03-21] MEDS ORDERED: VERAPAMIL 5 MG/2 ML (CALAN) VIAL IV ONE (12:59)
[2022-03-21] MEDS ORDERED: HEParin 1000 UNIT/ML (10ML VIAL) FOR BOLUS ONE (13:00)
[2022-03-21] MEDS ORDERED: fentaNYL INJ 100 MCG/2 ML AMP ONE (13:00)
[2022-03-21] MEDS ORDERED: NITRO DRIP 25000 MCG/D5W 250 ML IV ONE (13:00)
[2022-03-21] MEDS ORDERED: NS IV 1000 ML 1,000 ML ONE (13:00)
[2022-03-21] MEDS ORDERED: MIDAZOLAM 5 MG/5 ML (VERSED) VIAL ONE (13:00)
[2022-03-21] MEDS ORDERED: ASPIRIN 325 MG (5 GR) TABLET ONE (14:00)
[2022-03-21] MEDS ORDERED: CLOPIDOGREL 300 MG (PLAVIX) TABLET PO ONE (14:00)
[2022-03-21] MEDS ORDERED: NS IV 1000 ML 1,000 ML IV SCH (14:15)
--- NOTE | 2022-03-21 14:17 | Cardiac Cath Report ---
Cardiac Cath Report Physician (s)/Creel Clerk (s) Physician NATIVIDAD FOSTER MD Pre-Procedure Diagnosis Pre-Procedure Diagnosis: Unstable angina Post-Procedure Note Procedure Start Date: Mar 21, 2022 Name of Procedure: Left heart catheterization Stenting to the proximal and distal LAD Findings/Procedure Note PROCEDURE NOTE: 66-year-old lady with history of diabetes mellitus, hypertension hyperlipidemia, had history of abnormal stress test has been refusing cardiac catheterization, admitted with unstable angina through the emergency room. Decided to proceed with cardiac catheterization. After explaining the procedure to the patient, all pros and cons were explained, all questions were answered. The patient signed the consent and then she was placed on the cardiac catheterization laboratory. Groin was prepped SL fashion local anesthesia was used. Sheath placed in the right radial artery, [place] catheter was advanced to the left ventricular cavity, pressure was measured, pullback LV to aorta was done, engage the right and left coronary system, multiple views were obtained. Patient had multiple lesions in the LAD proximal and distal lesions. I decided to proceed with percutaneous intervention. Patient received total of 6000 units of heparin EBU 3.5 guide was advanced, BMW wire was advanced and parked distally. The distal LAD lesion was 90% stenosis, daryn point stent 2.5 x 12 mm was deployed up to 2.7 mm with excellent results. The proximal lesion is 95% stenosis, successful primary stenting using daryn point stent 3 x 12 mm expanded to 3.1 mm with excellent results. Angiogram showed excellent results. At the end of the procedure the sheath was removed. Vascular band was used FINDINGS: Hemodynamics LV 136/12, end-diastolic pressure of 12 Aorta 150/75 mean of 100 ANATOMY: Left Main is free of obstructive disease Left Anterior Descending is moderate in size, has multiple lesions, proximally 95% stenosis successful primary stenting using daryn point 3 x 12 mm with excellent results, distally has 90% stenosis successful deployment of a daryn point stent 2.5 x 12 mm expanded to 2.7 mm. The mid LAD has 40 to 50% stenosis that was treated conservatively Left Circumflex is moderate in size with mild disease nonobstructive disease, dominant artery Right Coronary Artery is moderate in size with mild disease, nondominant artery nonobstructive disease LV Gram was not done, pressure was measured CONCLUSION: 1. Unstable angina with multisegment stenosis in the proximal and distal LAD, successful deployment of 2 stents, proximal LAD has a daryn point stent 3 x 12 expanded to 3.1 mm. Distal LAD received a daryn point stent 2.5 x 12 mm expanded to 2.7 mm. The mid LAD has 40 to 50% stenosis that is treated conservatively 2. Dominant circumflex system with mild disease nonobstructive disease in the rest of the coronaries 3. Normal left ventricular end-diastolic pressure DISCUSSION AND RECOMMENDATION: I will maximize medical therapy and monitor. Patient was started on aspirin and Plavix Anesthesia Type: Conscious Sedation Estimated blood loss (mL): 25 ml Contrast Amount: 200 ml Total Radiation Dose: 1457 mGy Post-Procedure Diagnosis Post-operative diagnosis: Unstable angina Coronary artery disease Hypertension Hyperlipidemia NATIVIDAD FOSTER MD Mar 21, 2022 14:17
[2022-03-21 14:45] VITALS: BP 128/71
--- NOTE | 2022-03-21 14:47 | History & Physical-Hospitalist ---
History of Present Illness HPI/Chief Complaint CC: Unstable angina HPI: This is a [facility] female clinic pt. She presented to the ER with chest pain. She was taken to the cardiac brine room laborer by Dr. Gaviria. Underwent 2 stents in the LAD. At this current time she is without chest pain and denies any new problems. Source: patient Exam Limitations: no limitations Date Seen 03/21/22 Time Seen by a Provider: 15:00 Attending Physician [place] PCP Admitting Physician: Attending Physician: Raffy Gaviria MD Referring Physician Date of Admission Home Medications & Allergies Home Medications Reviewed patient Home Medication Reconciliation performed by pharmacy medication reconciliations quality control engineering technician and/or nursing. Patients Allergies have been reviewed. Allergies Allergies Coded Allergies lorazepam (Verified Allergy, Unknown, memory loss, 07/05/17) sulfamethoxazole (Verified Allergy, Unknown, NAUSEA, 07/05/17) trimethoprim (Verified Allergy, Unknown, NAUSEA, 07/05/17) Past Abdvbjf-Mkasbj-Kouncu Hx Patient Social History Marrital Status: Employed/Student: employed Tobacco Use?: No Smoking Status: Former Smoker Substance use?: No Alcohol Use?: No Immunizations Up To Date Date of Influenza Vaccine: Jul 21, 2012 Date of Pneumonia Vaccine: Oct 21, 2009 Seasonal Allergies Seasonal Allergies: Yes Current Status Primary Language: Northern Irish Preferred Spoken Language: Northern Irish Past Medical History Surgeries: Gallbladder, Hysterectomy Sleep Apnea Hypertension Polyps Arthritis Anxiety, Depression Review of Systems Constitutional: see HPI, malaise, weakness EENTM: no symptoms reported Respiratory: no symptoms reported Cardiovascular: chest pain Gastrointestinal: no symptoms reported Genitourinary: no symptoms reported Musculoskeletal: no symptoms reported Skin: no symptoms reported Psychiatric/Neurological: No Symptoms Reported All Other Systems Reviewed Negative Unless Noted: Yes Physical Exam Physical Exam Vital Signs Vital Signs - First Documented 03/21/22 10:51 Temp 36.3 Pulse 80 Resp 16 B/P (MAP) 174/105 (128) Pulse Ox 98 O2 Delivery Room Air Capillary Refill : Less Than 3 Seconds Height, Weight, BMI Height: 5'9.00" Weight: 189lbs. 0.0oz. 85.959020al; 27.00 BMI Method: General Appearance: No Apparent Distress, Chronically ill Eyes: Right Eye Normal Inspection, Right Eye PERRL HEENT: PERRL/EOMI, Normal ENT Inspection, Pharynx Normal, Moist Mucous Membranes Neck: Full Range of Motion, Normal Inspection, Non Tender Respiratory: Chest Non Tender, Lungs Clear, Normal Breath Sounds, No Accessory Muscle Use, No Respiratory Distress Cardiovascular: Regular Rate, Rhythm, No Edema, No Gallop, No JVD, No Murmur, Normal Peripheral Pulses Gastrointestinal: Normal Bowel Sounds, No Organomegaly, No Pulsatile Mass, Non Tender, Soft Back: Normal Inspection, No CVA Tenderness, No Vertebral Tenderness Extremity: Normal Capillary Refill, Normal Inspection, Normal Range of Motion, Non Tender, No Calf Tenderness, No Pedal Edema Neurologic/Psychiatric: Alert, Oriented x3, No Motor/Sensory Deficits, Normal Mood/Affect Skin: Normal Color, Warm/Dry Lymphatic: No Adenopathy Results Results/Procedures Labs Laboratory Tests 03/21/22 10:54 03/22/22 05:01 Patient resulted labs reviewed. Assessment/Plan Admission Diagnosis Assessment: Chest pain Unstable angina CAD 2 stents placed in LAD Hypertension Hyperlipidemia Plan: Supportive care Monitor closely Admission Status: Inpatient Order (span 2 midnights) Reason for Inpatient Admission: Unstable angina with stent placement Diagnosis/Problems Diagnosis/Problems (1) Unstable angina Clinical Quality Measures AMI/AHF: ASA po Prior to arrival: Yes ANEESH MARIA DO Mar 21, 2022 14:47
[2022-03-21 15:00] VITALS: BP 115/72
[2022-03-21 15:15] VITALS: BP 128/66
[2022-03-21] MEDS ORDERED: ONDANSETRON 4 MG/2 ML (SDV) Z0FRAN IV PRN (15:30)
[2022-03-21] MEDS ORDERED: LACTULOSE SYRUP 10GM/15ML (ENULOSE) 30ML UDC PO PRN (15:30)
[2022-03-21] MEDS ORDERED: ANTACID SUSP 30 ML UDC (MYLANTA) PO PRN (15:30)
[2022-03-21] MEDS ORDERED: ONDANSETRON 4 MG (ZOFRAN) ORAL DISSOLVE TAB PO PRN (15:30)
[2022-03-21] MEDS ORDERED: MELATONIN 3 MG TABLET PO PRN (15:30)
[2022-03-21] MEDS ORDERED: BISACODYL 10 MG SUPP (DULCOLAX) PR PRN (15:30)
[2022-03-21] MEDS ORDERED: diphenhydrAMINE 25 MG TAB (BENADRYL) PO PRN (15:30)
[2022-03-21] MEDS ORDERED: MILK OF MAGNESIA 400 MG/5 ML 30 ML UDC PO PRN (15:30)
[2022-03-21] MEDS ORDERED: polyethylene glycoL POWDER 17 GM (MIRALAX) PACK PO PRN (15:30)
[2022-03-21] MEDS ORDERED: CALCIUM CARBONATE 500 MG (TUMS) TAB.CHEW PO PRN (15:30)
[2022-03-21] MEDS ORDERED: diphenhydrAMINE 50 MG/ML INJ (BENADRYL) IVP PRN (15:30)
[2022-03-21] MEDS ORDERED: ACETAMINOPHEN 325 MG TABLET PO PRN (15:30)
[2022-03-21] MEDS ORDERED: morphine INJ 4 MG/ML 1 ML (VIAL/SYRINGE) IV PRN (15:30)
[2022-03-21] MEDS: NS IV 1000 ML 1,000 ML IV SCH ×2 (15:41→21:09)
[2022-03-21] MEDS: inSUlin ASPART (NovoLOG) 1 UNIT/0.01 ML (CHARGE PER UNIT) SC SCH ×2 (16:40→20:35)
[2022-03-21] MEDS ORDERED: DULA3PEN INJ (17:26)
[2022-03-21] MEDS ORDERED: DAPA1TAB3 PO (17:26)
[2022-03-21] MEDS ORDERED: CELE-63 PO (17:26)
[2022-03-21 19:42] VITALS: BP 164/79
[2022-03-21] MEDS: SENNOSIDES 8.6 MG (SENOKOT) TAB PO SCH (20:33)
[2022-03-21] MEDS: DOCUSATE SODIUM 100 MG (COLACE) CAP PO SCH (20:33)
[2022-03-22] VITALS: BP 149/68
[2022-03-22 04:07] VITALS: BP 156/81
[2022-03-22 05:23] LABS: BASOPHILS % (AUTO) 0 % (0-10); EOSINOPHILS # (AUTO) 0.1 10^3/uL (0.0-0.3); EOSINOPHILS % (AUTO) 1 % (0-10); HEMATOCRIT 37 % (35-52); HEMOGLOBIN 12.1 g/dL (11.5-16.0); LYMPHOCYTES # (AUTO) 2.1 10^3/uL (1.0-4.0); LYMPHOCYTES % (AUTO) 26 % (12-44); MEAN CORPUSCULAR HEMOGLOBIN 27 pg (25-34); MEAN CORPUSCULAR HGB CONC 32 g/dL (32-36); MEAN CORPUSCULAR VOLUME 84 fL (80-99); MEAN PLATELET VOLUME 12.3 fL (9.0-12.2); MONOCYTES # (AUTO) 0.5 10^3/uL (0.0-1.0); MONOCYTES % (AUTO) 7 % (0-12); NEUTROPHILS # (AUTO) 5.1 10^3/uL (1.8-7.8); NEUTROPHILS % (AUTO) 65 % (42-75); PLATELET COUNT 111 10^3/uL (130-400); WHITE BLOOD COUNT 7.8 10^3/uL (4.3-11.0)
[2022-03-22 06:06] LABS: POTASSIUM 4.1 MMOL/L (3.6-5.0)
[2022-03-22 06:08] LABS: CALCIUM 9.2 MG/DL (8.5-10.1)
[2022-03-22 06:09] LABS: TOTAL PROTEIN 7.3 GM/DL (6.4-8.2)
[2022-03-22 06:11] LABS: BILIRUBIN,TOTAL 0.4 MG/DL (0.1-1.0)
[2022-03-22 06:12] LABS: CREATININE SERUM 0.81 MG/DL (0.60-1.30)
[2022-03-22] MEDS: inSUlin ASPART (NovoLOG) 1 UNIT/0.01 ML (CHARGE PER UNIT) SC SCH (06:16)
[2022-03-22] MEDS ORDERED: ASPI-1238 PO (06:24)
[2022-03-22] MEDS ORDERED: CLOP75TA28 PO (06:24)
--- NOTE | 2022-03-22 06:24 | Discharge Inst-Post CATH ---
Discharge Inst-CATH/EP Problems Reviewed?: Yes Post Cardiac Cath/EP D/C Inst Follow Up/Plan Appointment with Dr Gaviria in 2-4 weeks <b>CARDIAC CATH/EP PROCEDURE DISCHARGE INSTRUCTIONS</b> ACTIVITY * Go Home directly and rest. * Limit activity of the leg (or wrist if it was used) for 7 days including aerobics, swimming, jogging, bicycling, etc. * Restrict stair-climbing for 7 days if possible, if not, climb up with your non-cath leg, then bring together on the same step. * Avoid lifting, pushing, pulling or excessive movement of the affected extremity for 7 days. * Customary sexual activity may be resumed after 2 days-use caution not to use a position that strains or causes pain to the affected extremity. * No driving for 24 hours. * NO SMOKING. * Avoid straining for bowel movements for 7 days. * Gentle walking on level ground is allowed. * Returning to work will depend on the type of procedure and the results. Your doctor will discuss this with you. CALL YOUR DOCTOR FOR ANY OF THE FOLLOWING: *If bleeding from the puncture site occurs- Apply gentle pressure to site with clean cloth and call your doctor or EMS. * If a knot or lump forms under the skin, increases in size, or causes pain. * If bruising appears to be worsening or moving further down your leg instead of disappearing. * Temperature above 101 F. CARE OF YOUR GROIN INCISION; * Bruising or purple discoloration of the skin near the puncture site is common. * You may shower only, no bathtub bathing for 5 days. Be careful to avoid slipping as your leg may feel stiff. * If a closure device was used on your femoral artery, please see the attached guide regarding care of the device and your leg. * Leave dressing on FOR 24 hours. CARE OF YOUR WRIST INCISION; * Bruising or purple discoloration of the skin near the puncture site is common. * You may shower. * DO NOT submerge wrist. * Leave dressing on FOR 24 hours. NATIVIDAD GAVIRIA MD Mar 22, 2022 06:24
[2022-03-22] MEDS ORDERED: LEVOTHYROXINE 25 MCG (LEVOTHROID) TAB PO SCH (07:00)
[2022-03-22 08:00] VITALS: BP 162/79
--- NOTE | 2022-03-22 08:11 | Cardiology Progress Note ---
Subjective Date Seen by Provider: Mar 22, 2022 Time Seen by Provider: 08:08 Subjective/Events-last exam Patient was seen at bedside, laying down comfortably, feeling better No chest pain. Her wrist is healing well. Review of Systems General: No Chills, No Night Sweats, No Fatigue, No Malaise, No Appetite, No Other HEENT: No Head Aches, No Visual Changes, No Eye Pain, No Ear Pain, No Dysphasia, No Sinus Congestion, No Post Nasal Drip, No Sore Throat, No Other Pulmonary: No Dyspnea, No Cough, No Pleuritic Chest Pain, No Other Cardiovascular: No: Chest Pain, Palpitations, Orthopnea, Paroxysmal Noc. Dyspnea, Edema, Lt Headedness, Other Objective-Cardiology Exam Last Set of Vital Signs Vital Signs 03/22/22 03/22/22 04:07 08:00 Temp 36.2 Pulse 93 Resp 18 B/P (MAP) 162/79 (106) Pulse Ox 98 O2 Delivery Room Air I&O Intake and Output 03/22/22 00:00 Intake Total 675 ml Balance 675 ml Intake Oral 675 ml # Voids 3 Daily Weight Change No General: Alert, Oriented X3, Cooperative HEENT: Atraumatic, PERRLA Neck: Supple, No JVD, No Thyromegaly Lungs: Clear to Auscultation, Normal Air Movement Heart: Regular Rate, Normal S1, Normal S2, No Murmurs Abdomen: Normal Bowel Sounds, Soft, No Tenderness, No Hepatosplenomegaly, No Masses Extremities: No Clubbing, No Cyanosis, No Edema, Normal Pulses, No Tenderness/Swelling Skin: No Rashes, No Breakdown, No Significant Lesion Neuro: Normal Gait, Normal Speech, Strength at 5/5 X4 Ext, Normal Tone, Sensation Intact Psych/Mental Status: Mental Status NL, Mood NL Results Lab Laboratory Tests 03/21/22 10:54 03/22/22 05:01 A/P-Cardiology Admission Diagnosis Chest pain Coronary artery disease Hypertension Hyperlipidemia Assessment/Plan Chest pain, nonspecific etiology, unstable angina Coronary artery disease status post cardiac catheterization and stenting to the LAD Coronary artery disease, Abnormal stress test on July 01, 2019 revealing questionable mild ischemia of mid to apical anterolateral and inferolateral wall, normal LV, EF 77%, TID=1.37. Cardiac catheterization carried out on March 21, 2022 had stenting of the proximal LAD with 3 x 12 skypoint stent and stenting of the distal LAD with 2.5 x 12 skypoint stent with excellent results. Mid LAD has 40 to 50% stenosis treated conservatively otherwise mild to moderate coronary artery disease. Patient was educated on needing aspirin and Plavix continuously for the next 6 months. Echocardiogram done on June 25, 2019 showing normal left ventricular size and systolic function estimated ejection fraction 6570 percent, grade 1 diastolic dysfunction, patent flynn ovale. Pulmonary hypertension with PA pressure 45-50 mmHg Lower extremity pain, ultrasound was done in February 2019 showing mild diffuse atherosclerotic changes with no significant obstructive disease. Still having some peripheral neuropathy pain. Hypertension, controlled on current medication, continue to monitor. Hyperlipidemia maintained on Crestor, monitor lipids Nonobstructive carotid artery stenosis, continue to monitor Moderate sleep apnea, sleep study was done in April 2021, started using CPAP Diabetes mellitus, followed and managed by primary care physician, will hold metformin for 48 hours Generalized fatigue and loss of energy. Dyspnea on exertion, multiple risk factors for coronary artery disease, planning for left heart catheterization. Gastroparesis, diabetic, followed by Dr. Villarreal History of hysterectomy, cholecystectomy Okay for discharge and follow-up as an outpatient NATIVIDAD FOSTER MD Mar 22, 2022 08:10
[2022-03-22] MEDS: SENNOSIDES 8.6 MG (SENOKOT) TAB PO SCH (08:31)
[2022-03-22] MEDS: DOCUSATE SODIUM 100 MG (COLACE) CAP PO SCH (08:31)
[2022-03-22] MEDS ORDERED: SERTRALINE 100 MG (ZOLOFT) TAB PO SCH (09:00)
[2022-03-22] MEDS ORDERED: PANTOPRAZOLE 40 MG (PROTONIX) TAB PO SCH (09:00)
[2022-03-22] MEDS ORDERED: amLODIPine 5 MG (NORVASC) TAB PO SCH (09:00)
[2022-03-22] MEDS ORDERED: ASPIRIN E.C. 81 MG (ECOTRIN) TAB PO SCH (09:00)
[2022-03-22] MEDS ORDERED: LOSARTAN 25 MG (COZAAR) TAB PO SCH (09:00)
[2022-03-22] MEDS ORDERED: ROSUVASTATIN 10 MG (CRESTOR) TABLET PO SCH (09:00)
[2022-03-22] MEDS ORDERED: CLOPIDOGREL 75 MG (PLAVIX) TABLET PO SCH (09:00)
--- NOTE | 2022-03-22 10:14 | Discharge Summary ---
Discharge Summary Hospital Course Was the Problem List Reviewed?: Yes Problems/Dx: (1) Unstable angina Hospital Course Date of Admission: Mar 21, 2022 at 15:20 Admission Diagnosis : Family Physician/Provider: Arnulfo Brennan Date of Discharge: 03/22/22 Discharge Diagnosis: Unstable angina, stents placed in LAD Hospital Course: Pt had an uneventful hospital course after she was admitted for chest pain. She underwent cardiac cath and two stents were placed. Pt was deemed stable for discharge on cardiac meds for Dr. Gaviria. Labs and Pending Lab Test: Laboratory Tests 03/21/22 10:54: White Blood Count 9.1, Red Blood Count 4.87, Hemoglobin 13.3, Hematocrit 41, Mean Corpuscular Volume 84, Mean Corpuscular Hemoglobin 27, Mean Corpuscular Hemoglobin Concent 32, Red Cell Distribution Width 15.5H, Platelet Count 152, Mean Platelet Volume 11.9, Immature Granulocyte % (Auto) 0, Neutrophils (%) (Auto) 67, Lymphocytes (%) (Auto) 25, Monocytes (%) (Auto) 6, Eosinophils (%) (Auto) 1, Basophils (%) (Auto) 0, Neutrophils # (Auto) 6.0, Lymphocytes # (Auto) 2.3, Monocytes # (Auto) 0.6, Eosinophils # (Auto) 0.1, Basophils # (Auto) 0.0, Immature Granulocyte # (Auto) 0.0, Prothrombin Time 13.0, INR Comment 0.9, Activated Partial Thromboplast Time 33, D-Dimer 2.49H, Sodium Level 139, Potassium Level 4.4, Chloride Level 102, Carbon Dioxide Level 22, Anion Gap 15H, Blood Urea Nitrogen 16, Creatinine 0.87, Estimat Glomerular Filtration Rate 73, BUN/Creatinine Ratio 18, Glucose Level 158H, Calcium Level 9.7, Corrected Calcium 9.5, Magnesium Level 2.0, Total Bilirubin 0.4, Aspartate Amino Transf (AST/SGOT) 26, Alanine Aminotransferase (ALT/SGPT) 22, Alkaline Phosphatase 66, Total Creatine Kinase 47, Creatine Kinase MB 2.4, Myoglobin 36.4, Troponin I < 0.028, B-Type Natriuretic Peptide 179.2H, Total Protein 8.1, Albumin 4.3 03/21/22 18:00: Influenza Type A (RT-PCR) Not Detected, Influenza Type B (RT-PCR) Not Detected, SARS-CoV-2 RNA (RT-PCR) Not Detected 03/21/22 20:21: Glucometer 152H 03/22/22 05:01: White Blood Count 7.8, Red Blood Count 4.46, Hemoglobin 12.1, Hematocrit 37, Emperatriz n Corpuscular Volume 84, Mean Corpuscular Hemoglobin 27, Mean Corpuscular Hemoglobin Concent 32, Red Cell Distribution Width 15.4H, Platelet Count 111L, Mean Platelet Volume 12.3H, Immature Granulocyte % (Auto) 1, Neutrophils (%) (Auto) 65, Lymphocytes (%) (Auto) 26, Monocytes (%) (Auto) 7, Eosinophils (%) (Auto) 1, Basophils (%) (Auto) 0, Neutrophils # (Auto) 5.1, Lymphocytes # (Auto) 2.1, Monocytes # (Auto) 0.5, Eosinophils # (Auto) 0.1, Basophils # (Auto) 0.0, Immature Granulocyte # (Auto) 0.0, Sodium Level 138, Potassium Level 4.1, Chloride Level 105, Carbon Dioxide Level 21, Anion Gap 12, Blood Urea Nitrogen 14, Creatinine 0.81, Estimat Glomerular Filtration Rate 79, BUN/Creatinine Ratio 17, Glucose Level 152H, Calcium Level 9.2, Corrected Calcium 9.2, Total Bilirubin 0.4, Aspartate Amino Transf (AST/SGOT) 22, Alanine Aminotransferase (ALT/SGPT) 19, Alkaline Phosphatase 62, Troponin I 0.056H, Total Protein 7.3, Albumin 4.0, Triglycerides Level 171H, Cholesterol Level 141, LDL Cholesterol Direct 72, VLDL Cholesterol 34, HDL Cholesterol 44 Home Meds Active Aspirin EC (Aspirin) 81 Mg Tablet.dr 81 Mg PO DAILY Clopidogrel (Clopidogrel Bisulfate) 75 Mg Tablet 75 Mg PO DAILY Reported Trulicity (Dulaglutide) 3 Mg/0.5 Ml Pen.injctr 3 Mg INJ WEEK 30 Days Xigduo Xr 5 mg-1,000 mg Tablet (Dapagliflozin/Metformin HCl) 5 Mg-1,000 Mg Tab.bp.24h 10-2,000 Mg PO DAILY 30 Days Celecoxib 200 Mg Capsule 200 Mg PO DAILY 30 Days Multi Tablet (Pnv No.122/Iron/Folic Acid) 1 Each Tablet 1 Each PO DAILY Atenolol 50 Mg Tablet 50 Mg PO BID Levothyroxine Sodium 25 Mcg Tablet 25 Mcg PO DAILY Amlodipine Besylate 5 Mg Tablet 5 Mg PO DAILY Omeprazole 20 Mg Tablet.dr 20 Mg PO DAILY Rosuvastatin Calcium 10 Mg Tablet 10 Mg PO DAILY Lisinopril 40 Mg Tablet 40 Mg PO DAILY Sertraline HCl 100 Mg Tablet 150 Mg PO DAILY take 1 1/2 of 100mg tab for 150mg total Assessment/Pt Instructions PCP in 1 week Discharge Planning: <30 minutes discharge planning Discharge Instructions Discharge Diet: Cardiac Diet Discharge Physical Examination Vital Signs Vital Signs Date Time Temp Pulse Resp B/P (MAP) Pulse Ox O2 Delivery O2 Flow Rate FiO2 03/22/22 08:00 36.3 03/22/22 08:00 93 162/79 (106) 98 Room Air 03/22/22 04:07 18 General Appearance: No Apparent Distress, WD/WN, Chronically ill Respiratory: Lungs Clear Cardiovascular: Regular Rate, Rhythm Allergies: Coded Allergies: lorazepam (Verified Allergy, Unknown, memory loss, 07/05/17) sulfamethoxazole (Verified Allergy, Unknown, NAUSEA, 07/05/17) trimethoprim (Verified Allergy, Unknown, NAUSEA, 07/05/17) Discharge Summary Date of Admission Mar 21, 2022 at 15:20 Date of Discharge Discharge Date: Mar 22, 2022 Admission Diagnosis Assessment: Chest pain Unstable angina CAD 2 stents placed in LAD Hypertension Hyperlipidemia Plan: Supportive care Monitor closely Discharge Diagnosis (1) Unstable angina Clinical Quality Measures AMI/AHF: ASA po Prior to arrival: Yes DVT/VTE Risk/Contraindication: Contraindications-Pharm: Other *list below* Other: cath blood thinners ANEESH MARIA DO Mar 22, 2022 10:14
[2022-03-22 10:27] VITALS: BP 168/82
[2022-03-22 10:30] VITALS: BP 168/82
== END 2022-03-22 10:27 | disposition home or self-care (01) | DRG 247 ==
LOC: EDUNIT# 10:38 → ER 10:40 → CATH 12:57 → CSD 14:35 → CATH 15:19 → CSD 15:20
PROVIDERS: ADMIT Internal Medicine; ATTEND Internal Medicine
PROC: 027035Z Dilation of Coronary Artery, One Artery with Two Drug-eluting Intraluminal Devices, Percutaneous Approach (ICD-10-PCS; principal; 2022-03-21)
PROC: 4A023N7 Measurement of Cardiac Sampling and Pressure, Left Heart, Percutaneous Approach (ICD-10-PCS; 2022-03-21)
PROC: B2111ZZ Fluoroscopy of Multiple Coronary Arteries using Low Osmolar Contrast (ICD-10-PCS; 2022-03-21)
DX: I25.110 Atherosclerotic heart disease of native coronary artery with unstable angina pectoris (principal); I27.20 Pulmonary hypertension, unspecified; I10 Essential (primary) hypertension; E78.5 Hyperlipidemia, unspecified; E11.42 Type 2 diabetes mellitus with diabetic polyneuropathy; E11.43 Type 2 diabetes mellitus with diabetic autonomic (poly)neuropathy; K31.84 Gastroparesis; M19.91 Primary osteoarthritis, unspecified site; F41.9 Anxiety disorder, unspecified; F32.A Depression, unspecified; F17.210 Nicotine dependence, cigarettes, uncomplicated; G47.30 Sleep apnea, unspecified; Z79.84 Long term (current) use of oral hypoglycemic drugs; Z88.2 Allergy status to sulfonamides; Z88.8 Allergy status to other drugs, medicaments and biological substances
CPT/HCPCS: 36415; 71045; 71275; 80053; 80061; 82550; 82553; 82947; 83735; 83874; 83880; 84484; 85025; 85027; 85379; 85610; 85730; 87636; 93005; 93041; 93306; 93458

== ENCOUNTER 2022-04-30 10:39 | Outpatient (RCR) | payer MEDICARE, MEDICAID ==
[~2022-04-30 10:39] MED LIST changes: +ASPI-1238 PO; +CELE-63 PO; +CLOP75TA28 PO; +DAPA1TAB3 PO; +DULA3PEN INJ
== END 2022-05-20 | disposition home or self-care (01) ==
LOC: CR 10:39
PROVIDERS: ATTEND Internal Medicine Cardiovascular Disease
DX: Z29.8 Encounter for other specified prophylactic measures (principal); Z95.5 Presence of coronary angioplasty implant and graft
CPT/HCPCS: 93798

== ENCOUNTER 2022-05-21 06:26 | Outpatient (RCR) | payer MEDICARE, MEDICAID | END 2022-06-20 | LOC: CR 06:26 | PROVIDERS: ATTEND Internal Medicine Cardiovascular Disease | DX: Z29.8 Encounter for other specified prophylactic measures (principal); Z95.5 Presence of coronary angioplasty implant and graft ==

== ENCOUNTER 2022-06-22 07:19 | Outpatient (RCR) | payer MEDICARE, MEDICAID | END 2022-07-20 | disposition home or self-care (01) | LOC: CR 07:19 | PROVIDERS: ATTEND Internal Medicine Cardiovascular Disease | DX: Z29.8 Encounter for other specified prophylactic measures (principal); Z95.5 Presence of coronary angioplasty implant and graft ==

== ENCOUNTER → 2022-10-26 | Outpatient (CLI) | payer MEDICARE, MEDICAID ==
[~2022-10-26] MED LIST changes: +GADOTERATE 0.5 MMOL/ML (CLARISCAN) 20 ML VIAL IV ONE
--- NOTE | 2022-10-26 12:02 | Diagnostic Imaging Report ---
CLINICAL INDICATION: Patient has an over 30-year-old injury on her lower back and states pain has increased in the past two years with significant pain in the past two months. EXAM: MRI of the brain performed without and with 15 cc of Clariscan IV contrast. Sequences include axial DWI, ADC map, coronal gradient echo, axial FLAIR, axial T1, axial T2, axial T1 post IV contrast whole brain, coronal T1 fat-sat post IV contrast whole brain, and sagittal T1 fat-sat post IV contrast whole brain. COMPARISON: None. FINDINGS: There is no abnormal IV contrast enhancement. There are Modic type II degenerative signal changes involving the L4-L5 endplates. There are degenerative spurs involving the lumbar spine and facet arthropathy. The visualized portions of the distal thoracic spinal cord, conus medullaris, and cauda equina nerve roots are unremarkable. The conus medullaris tip is seen at the L1-L2 intervertebral level. There is a 2.1 cm cyst involving the left kidney. There is no significant paraspinal soft tissue abnormality. T12-L1: Unremarkable. L1-L2: There is mild bilateral facet arthropathy. There is no significant central spinal canal or neural foramen narrowing. L2-L3: There is mild bilateral facet arthropathy. There is no significant central spinal canal or neural foramen narrowing. L3-L4: There is grade 1 anterolisthesis of L3 on L4. There is severe bilateral facet arthropathy/hypertrophy and ligamentum flavum buckling. There is a diffuse disk bulge with moderate loss of disk space height. There is severe central canal stenosis. There is ocim-kl-vgnuuhmz left neural foramen narrowing. There is no significant right neural foramen narrowing. L4-L5: There is a diffuse disk bulge with severe loss of disk space height. There is severe bilateral facet arthropathy/hypertrophy. There is mild central canal stenosis. There is mild right neural foramen narrowing and no significant left neural foramen narrowing. L5-S1: There is a diffuse disk bulge with mild loss of disk space height. There is severe right facet arthropathy/hypertrophy and moderate left facet arthropathy. There is no significant central canal stenosis. There is a small perineural cyst in the right neural foramen region, which measures grossly 7 mm x 12 mm in AP x transverse dimensions and 5 mm in craniocaudal dimension. There is utzwuzax-[id number] right neural foramen narrowing with some of the narrowing contributed by the perineural cyst. There is moderate left neural foramen narrowing. IMPRESSION: 1: There is no acute lumbar spine fracture. 2: There is multilevel lumbar spine degenerative disk disease which is described in detail above. 3: There is a small perineural cyst in the right L5-S1 neural foramen region, which contributes to qcyugdrp-vx-[id number] right neural foramen narrowing. Dictated by: Dictated on workstation # [id number]
== END ==
LOC: RAD 08:45
PROVIDERS: ATTEND Pediatrics
DX: M51.36 Other intervertebral disc degeneration, lumbar region (principal); M47.816 Spondylosis without myelopathy or radiculopathy, lumbar region; M48.061 Spinal stenosis, lumbar region without neurogenic claudication; M48.07 Spinal stenosis, lumbosacral region
CPT/HCPCS: 72158

== ENCOUNTER 2022-12-12 19:21 | Observation (INO) | payer MEDICARE, MEDICAID ==
[~2022-12-12] VITALS: Ht 172.7 cm; Wt 80.5 kg
[~2022-12-12 19:21] MED LIST changes: -GADOTERATE 0.5 MMOL/ML (CLARISCAN) 20 ML VIAL IV ONE
[2022-12-12 20:46] LABS: BASOPHILS % (AUTO) 0 % (0-10); EOSINOPHILS # (AUTO) 0.2 10^3/uL (0.0-0.3); EOSINOPHILS % (AUTO) 2 % (0-10); HEMATOCRIT 28 % (35-52); HEMOGLOBIN 8.5 g/dL (11.5-16.0); LYMPHOCYTES # (AUTO) 1.3 10^3/uL (1.0-4.0); LYMPHOCYTES % (AUTO) 13 % (12-44); MEAN CORPUSCULAR HEMOGLOBIN 23 pg (25-34); MEAN CORPUSCULAR HGB CONC 30 g/dL (32-36); MEAN CORPUSCULAR VOLUME 75 fL (80-99); MEAN PLATELET VOLUME 12.2 fL (9.0-12.2); MONOCYTES # (AUTO) 0.6 10^3/uL (0.0-1.0); MONOCYTES % (AUTO) 6 % (0-12); NEUTROPHILS # (AUTO) 7.9 10^3/uL (1.8-7.8); NEUTROPHILS % (AUTO) 78 % (42-75); PLATELET COUNT 242 10^3/uL (130-400); WHITE BLOOD COUNT 10.1 10^3/uL (4.3-11.0)
[2022-12-12 21:03] LABS: ALBUMIN 3.3 GM/DL (3.2-4.5); BILIRUBIN,TOTAL 0.4 MG/DL (0.1-1.0); CALCIUM 8.9 MG/DL (8.5-10.1); CREATININE SERUM 0.71 MG/DL (0.60-1.30); POTASSIUM 3.2 MMOL/L (3.6-5.0); TOTAL PROTEIN 6.9 GM/DL (6.4-8.2)
[2022-12-12] MEDS ORDERED: FUROSEMIDE 40 MG/4 ML INJ (LASIX) IVP ONE (21:15)
--- NOTE | 2022-12-12 21:20 | Diagnostic Imaging Report ---
CLINICAL INDICATIONS: Patient with chest pain. EXAM: Portable chest x-ray upright view. COMPARISON: Chest x-ray dated 03/21/2022. FINDINGS: Lungs/pleura: There is interval development of diffuse patchy airspace opacities and consolidation predominantly involving both midlung espinal and both lung bases. There is no pneumothorax. There is no pleural effusion. Mediastinum: Unremarkable. Pulmonary vasculature: Unremarkable. Heart: Unremarkable. Bones/extrathoracic soft tissue: There are degenerative spurs involving the thoracic spine. IMPRESSION: There is interval development of diffuse bilateral lung infiltrates concerning for pneumonia. Dictated by: Dictated on workstation # [id number]
--- NOTE | 2022-12-12 21:26 | ED Respiratory ---
General Chief Complaint: Respiratory Problems Stated Complaint: SOB Nursing Triage Note: PT ARRIVED VIA WC TO RM 1 WITH COMPLAINTS OF SOB- O2 SAT OF 70% RA AND BACK PAIN DUE TO A SPUR AND CYST ON BACK. PT STATED THAT SYMPTOMS STARTED 2-3 DAYS AGO AND HAVE NOT IMPROVED. PT DENSIES LOSS OF BOWEL AND BLADDER ISSUES. Source: patient, family Exam Limitations: no limitations History of Present Illness Date Seen by Provider: Dec 12, 2022 Time Seen by Provider: 20:14 Initial Comments 67-year-old female presents emergency department today for shortness of breath. Symptoms are especially worse with exertion. She is noted dramatic worsening over the last 3 to 4 days. Notably she had COVID about 3 months ago. She was seemingly recovered but the last 3 to 4 days she has had some worsening shortness of breath once again. She denies any chest pain. No fevers or chills. She does continue to have mild productive cough. She does have a history of coronary artery disease with 2 stents in her LAD in March of last year. No known history of heart failure. No sick contacts. Allergies and Home Medications Allergies Coded Allergies: lorazepam (Verified Allergy, Unknown, memory loss, 07/05/17) sulfamethoxazole (Verified Allergy, Unknown, NAUSEA, 07/05/17) trimethoprim (Verified Allergy, Unknown, NAUSEA, 07/05/17) Patient Home Medication List Home Medication List Reviewed: Yes Amlodipine Besylate (Amlodipine Besylate) 5 Mg Tablet, 5 MG PO DAILY, (Reported) Entered as Reported by: HATTIE PRATT on 07/05/17 1024 Aspirin (Aspirin EC) 81 Mg Tablet.dr, 81 MG PO DAILY Prescribed by: NATIVIDAD FOSTER on 03/22/22623 Atenolol (Atenolol) 50 Mg Tablet, 50 MG PO BID, (Reported) Entered as Reported by: HATTIE PRATT on 07/05/17 1024 Clopidogrel Bisulfate (Clopidogrel) 75 Mg Tablet, 75 MG PO DAILY Prescribed by: NATIVIDAD FOSTER on 03/22/22623 Dapagliflozin/Metformin HCl (Xigduo Xr 5 mg-1,000 mg Tablet) 5 Mg-1,000 Mg Tab.bp.24h, 10-2,000 MG PO DAILY, (Reported) Entered as Reported by: OSMANY OROPEZA on 03/21/22 1726 Dulaglutide (Trulicity) 3 Mg/0.5 Ml Pen.injctr, 3 MG INJ WEEK, (Reported) Entered as Reported by: OSMANY OROPEZA on 03/21/22 1726 Levothyroxine Sodium (Levothyroxine Sodium) 25 Mcg Tablet, 25 MCG PO DAILY, (Reported) Entered as Reported by: HATTIE PRATT on 07/05/17 1024 Lisinopril (Lisinopril) 40 Mg Tablet, 40 MG PO DAILY, (Reported) Entered as Reported by: HATTIE PRATT on 07/05/17 1024 Omeprazole (Omeprazole) 20 Mg Tablet.dr, 20 MG PO DAILY, (Reported) Entered as Reported by: HATTIE PRATT on 07/05/17 1024 Pnv No.122/Iron/Folic Acid ( Multi Tablet) 1 Each Tablet, 1 EACH PO DAILY, (Reported) Entered as Reported by: JULIET ACKERMAN on 07/08/17 0857 Rosuvastatin Calcium (Rosuvastatin Calcium) 10 Mg Tablet, 10 MG PO DAILY, (Re ported) Entered as Reported by: HATTIE PRATT on 07/05/17 1024 Sertraline HCl (Sertraline HCl) 100 Mg Tablet, 150 MG PO DAILY, (Reported) Entered as Reported by: HATTIE PRATT on 07/05/17 1024 Review of Systems Review of Systems Constitutional: weakness EENTM: no symptoms reported Respiratory: cough, short of breath Cardiovascular: no symptoms reported Gastrointestinal: no symptoms reported Genitourinary: no symptoms reported Musculoskeletal: no symptoms reported Skin: no symptoms reported Psychiatric/Neurological: No Symptoms Reported Hematologic/Lymphatic: No Symptoms Reported Immunological/Allergic: no symptoms reported Past Gvgqrcc-Aqlvmh-Zwdfpq Hx Patient Social History Tobacco Use?: No Smoking Status: Former Smoker Substance use?: No Alcohol Use?: No Immunizations Up To Date First/Initial COVID19 Vaccinat: UNKNOWN Second COVID19 Vaccination Jesus Manuel: UNKNOWN Third COVID19 Vaccination Date: UNKNOWN Seasonal Allergies Seasonal Allergies: Yes Past Medical History Surgery/Hospitalization HX: STENT- March Surgeries: Yes Gallbladder, Hysterectomy Respiratory: No Sleep Apnea Cardiac: Yes Hypertension Neurological: No Genitourinary: No Gastrointestinal: Yes Polyps Musculoskeletal: Yes Arthritis Endocrine: No HEENT: No Cancer: No Psychosocial: Yes Anxiety, Depression Integumentary: No Family Medical History Reviewed Nursing Family Hx No Pertinent Family Hx Physical Exam Vital Signs - First Documented Capillary Refill : Height: 5'9.00" Weight: 189lbs. 0.0oz. [id number]; 149.00 BMI Method: General Appearance: WD/WN, no apparent distress HEENT: normal ENT inspection, pharynx normal Neck: non-tender, supple, normal inspection Respiratory: chest non-tender, other (Initially patient with increased work of breathing, tachypnea. This improved after administration of oxygen via nasal cannula. There are few crackles in bilateral lung espinal) Cardiovascular: regular rate, rhythm, no edema, no murmur Gastrointestinal: normal bowel sounds, non tender, soft, no organomegaly Extremities: non-tender, normal inspection, no pedal edema Neurologic/Psychiatric: alert, normal mood/affect, oriented x 3 Skin: normal color, warm/dry Progress/Results/Core Measures Suspected Sepsis SIRS Temperature: Pulse: 91 Respiratory Rate: Laboratory Tests 12/12/22 20:41: White Blood Count 10.1 Blood Pressure 171 /81 Mean: 111 Laboratory Tests 12/12/22 20:41: Creatinine 0.71, INR Comment 1.0, Platelet Count 242, Total Bilirubin 0.4 Results/Orders Lab Results Laboratory Tests Test 12/12/22 20:33 12/12/22 20:41 Range/Units Influenza Type A (RT-PCR) Not Detected Not Detecte Influenza Type B (RT-PCR) Not Detected Not Detecte SARS-CoV-2 RNA (RT-PCR) Not Detected Not Detecte White Blood Count 10.1 4.3-11.0 10^3/uL Red Blood Count 3.77 L 3.80-5.11 10^6/uL Hemoglobin 8.5 L 11.5-16.0 g/dL Hematocrit 28 L 35-52 % Mean Corpuscular Volume 75 L 80-99 fL Mean Corpuscular Hemoglobin 23 L 25-34 pg Mean Corpuscular Hemoglobin Concent 30 L 32-36 g/dL Red Cell Distribution Width 19.0 H 10.0-14.5 % Platelet Count 242 130-400 10^3/uL Mean Platelet Volume 12.2 9.0-12.2 fL Immature Granulocyte % (Auto) 0 % Neutrophils (%) (Auto) 78 H 42-75 % Lymphocytes (%) (Auto) 13 12-44 % Monocytes (%) (Auto) 6 0-12 % Eosinophils (%) (Auto) 2 0-10 % Basophils (%) (Auto) 0 0-10 % Neutrophils # (Auto) 7.9 H 1.8-7.8 10^3/uL Lymphocytes # (Auto) 1.3 1.0-4.0 10^3/uL Monocytes # (Auto) 0.6 0.0-1.0 10^3/uL Eosinophils # (Auto) 0.2 0.0-0.3 10^3/uL Basophils # (Auto) 0.0 0.0-0.1 10^3/uL Immature Granulocyte # (Auto) 0.0 0.0-0.1 10^3/uL Prothrombin Time 14.1 12.2-14.7 SEC INR Comment 1.0 0.8-1.4 Sodium Level 138 135-145 MMOL/L Potassium Level 3.2 L 3.6-5.0 MMOL/L Chloride Level 104 98-107 MMOL/L Carbon Dioxide Level 23 21-32 MMOL/L Anion Gap 11 5-14 MMOL/L Blood Urea Nitrogen 10 7-18 MG/DL Creatinine 0.71 0.60-1.30 MG/DL Estimat Glomerular Filtration Rate 92 BUN/Creatinine Ratio 14 Glucose Level 118 H 70-105 MG/DL Calcium Level 8.9 8.5-10.1 MG/DL Corrected Calcium 9.5 8.5-10.1 MG/DL Total Bilirubin 0.4 0.1-1.0 MG/DL Aspartate Amino Transf (AST/SGOT) 16 5-34 U/L Alanine Aminotransferase (ALT/SGPT) 10 0-55 U/L Alkaline Phosphatase 65 40-136 U/L Troponin I < 0.028 <0.028 NG/ML B-Type Natriuretic Peptide 447.9 H <100.0 PG/ML Total Protein 6.9 6.4-8.2 GM/DL Albumin 3.3 3.2-4.5 GM/DL My Orders Orders - MANSI OSBORNE DO Cbc With Automated Diff (12/12/22 20:26) Chest 1 View, Ap/Pa Only (12/12/22 20:26) Ekg Tracing (12/12/22 20:26) Comprehensive Metabolic Panel (12/12/22 20:26) Protime With Inr (2/22/23 20:26) O2 (12/12/22 20:26) Monitor-Rhythm Ecg Trace Only (12/12/22 20:26) Ed Iv/Invasive Line Start (12/12/22 20:26) Bnp Irina (12/12/22 20:26) Troponin I Irina (12/12/22 20:26) Blood Culture (12/12/22 20:26) Ed Iv/Invasive Line Start (12/12/22 20:26) Covid 19 Inhouse Test (12/12/22 20:28) Influenza A And B By Pcr (12/12/22 20:28) Furosemide Injection (Lasix Injection) (12/12/22 21:15) Ed Admission (Communication) (12/12/22 21:24) Medications Given in ED Current Medications Medications Dose Ordered Sig/Maisha Route Start Time Stop Time Status Last Admin Dose Admin Furosemide 40 mg ONCE ONCE IVP 12/12/22 21:15 12/12/22 21:16 DC 12/12/22 21:28 40 MG Vital Signs/I&O 12/12/22 12/12/22 12/12/22 19:52 19:52 20:00 Pulse 91 B/P (MAP) 171/81 (111) Pulse Ox 97 97 O2 Delivery Nasal Cannula Nasal Cannula Nasal Cannula O2 Flow Rate 5.00 5.00 5.00 Capillary Refill : Blood Pressure Mean: 111 Departure Communication (Admissions) Patient initially with significant increased work of breathing, likely related to hypoxia she was about 70% on room air when she got here. She does not typically use oxygen at home. She is placed on nasal cannula, 5 L initially and titrated down. She tolerated this well with improvement in her oxygen in the mid 90s. She had resolution of her respiratory distress and her tachycardia improved with this as well. Her chemistry is relatively unremarkable. Her chest x-ray shows overt pulmonary edema bilaterally. I do not think this is likely infiltrates as her white count is normal she is afebrile and her story is more consistent with pulmonary edema. This could be cardiac in etiology however troponin is negative. Likely related to post-COVID type syndrome, long COVID, cardiomyopathy. There is no stigmata of pulmonary embolus at this time. She is given IV Lasix and admitted to the hospitalist with cardiology consult. Impression Primary Impression: Hypoxia Additional Impressions: Dyspnea Qualified Codes: R06.09 - Other forms of dyspnea Pulmonary edema Qualified Codes: J81.0 - Acute pulmonary edema Disposition: ADMITTED INPATIENT Condition: Stable Admissions Decision to Admit Reason: Admit from ER (General) Departure-Patient Inst. Referrals: [facility] (PCP) Primary Care Physician MELINDA MONTERROSO (Family) Primary Care Physician MANSI OSBORNE DO Dec 12, 2022 21:26
[2022-12-12 21:31] LABS: PROTHROMBIN TIME PATIENT 14.1 SEC (12.2-14.7)
[2022-12-13] MEDS ORDERED: polyethylene glycoL POWDER 17 GM (MIRALAX) PACK PO PRN
[2022-12-13] MEDS ORDERED: CALCIUM CARBONATE 500 MG (TUMS) TAB.CHEW PO PRN
[2022-12-13] MEDS ORDERED: BISACODYL 10 MG SUPP (DULCOLAX) PR PRN
[2022-12-13] MEDS ORDERED: diphenhydrAMINE 50 MG/ML INJ (BENADRYL) IVP PRN
[2022-12-13] MEDS ORDERED: ONDANSETRON 4 MG (ZOFRAN) ORAL DISSOLVE TAB PO PRN
[2022-12-13] MEDS ORDERED: diphenhydrAMINE 25 MG TAB (BENADRYL) PO PRN
[2022-12-13] MEDS ORDERED: cloNIDine 0.1 MG (CATAPRES) TAB PO PRN
[2022-12-13] MEDS ORDERED: hydrOXYzine (ATARAX) 10 MG TAB PO PRN
[2022-12-13] MEDS ORDERED: ANTACID SUSP 30 ML UDC (MYLANTA) PO PRN
[2022-12-13] MEDS ORDERED: MILK OF MAGNESIA 400 MG/5 ML 30 ML UDC PO PRN
[2022-12-13] MEDS ORDERED: LACTULOSE SYRUP 10GM/15ML (ENULOSE) 30ML UDC PO PRN
[2022-12-13] MEDS ORDERED: MELATONIN 3 MG TABLET PO PRN
[2022-12-13] MEDS ORDERED: HYDROmorphone 2 MG/ML VIAL (DILAUDID) IV PRN
[2022-12-13] MEDS ORDERED: ONDANSETRON 4 MG/2 ML (SDV) Z0FRAN IV PRN
[2022-12-13] MEDS ORDERED: ACETAMINOPHEN 325 MG TABLET PO PRN
[2022-12-13 00:13] VITALS: BP 142/72
[2022-12-13 04:00] VITALS: BP 137/73
[2022-12-13 04:58] LABS: BASOPHILS % (AUTO) 0 % (0-10); EOSINOPHILS # (AUTO) 0.2 10^3/uL (0.0-0.3); EOSINOPHILS % (AUTO) 2 % (0-10); HEMATOCRIT 27 % (35-52); HEMOGLOBIN 8.3 g/dL (11.5-16.0); LYMPHOCYTES # (AUTO) 1.8 10^3/uL (1.0-4.0); LYMPHOCYTES % (AUTO) 20 % (12-44); MEAN CORPUSCULAR HEMOGLOBIN 23 pg (25-34); MEAN CORPUSCULAR HGB CONC 30 g/dL (32-36); MEAN CORPUSCULAR VOLUME 74 fL (80-99); MEAN PLATELET VOLUME 11.7 fL (9.0-12.2); MONOCYTES # (AUTO) 0.7 10^3/uL (0.0-1.0); MONOCYTES % (AUTO) 7 % (0-12); NEUTROPHILS # (AUTO) 6.4 10^3/uL (1.8-7.8); NEUTROPHILS % (AUTO) 70 % (42-75); PLATELET COUNT 195 10^3/uL (130-400); WHITE BLOOD COUNT 9.1 10^3/uL (4.3-11.0)
[2022-12-13 05:17] LABS: ALBUMIN 3.2 GM/DL (3.2-4.5); BILIRUBIN,TOTAL 0.6 MG/DL (0.1-1.0); CALCIUM 8.8 MG/DL (8.5-10.1); CREATININE SERUM 0.69 MG/DL (0.60-1.30); TOTAL PROTEIN 6.7 GM/DL (6.4-8.2)
[2022-12-13 06:22] VITALS: BP 171/81
[2022-12-13] MEDS: FUROSEMIDE 40 MG/4 ML INJ (LASIX) IVP SCH ×2 (06:26→17:28)
[2022-12-13] MEDS ORDERED: RT-ALBUTEROL SULF 2.5 MG/3 ML PRE-MIX VIAL INH PRN (06:45)
[2022-12-13 08:01] VITALS: BP 143/59
[2022-12-13] MEDS ORDERED: DOCUSATE SODIUM 100 MG (COLACE) CAP PO SCH (09:00)
[2022-12-13] MEDS ORDERED: ASPIRIN E.C. 81 MG (ECOTRIN) TAB PO SCH (09:00)
[2022-12-13] MEDS ORDERED: SENNOSIDES 8.6 MG (SENOKOT) TAB PO SCH (09:00)
[2022-12-13] MEDS ORDERED: CLOPIDOGREL 75 MG (PLAVIX) TABLET PO SCH (09:00)
[2022-12-13] MEDS ORDERED: PANT40TA52 PO ×2 (10:03→12:05)
[2022-12-13] MEDS ORDERED: ATEN50TA PO ×2 (10:03→12:05)
[2022-12-13] MEDS ORDERED: DULA3PEN INJ (10:03)
[2022-12-13] MEDS ORDERED: PREG75CA PO ×2 (10:04)
[2022-12-13] MEDS ORDERED: NON-FORMULARY MEDICATION 1 EA EA (Dulaglutide (Trulicity) 4.5 MG) INJ SCH ×3 (11:45→18:00)
[2022-12-13] MEDS ORDERED: PREGABALIN 75 MG (LYRICA) CAP PO SCH (12:00)
[2022-12-13] MEDS ORDERED: IBUP-2473 PO (12:05)
[2022-12-13] MEDS ORDERED: PREG75CA75 PO ×2 (12:05)
[2022-12-13] MEDS ORDERED: DULA4.5P SQ (12:05)
[2022-12-13] MEDS ORDERED: FLUC100T10 PO (12:05)
[2022-12-13] MEDS ORDERED: ASPI-1238 PO (12:05)
[2022-12-13] MEDS ORDERED: CLOP75TA28 PO (12:05)
[2022-12-13] MEDS ORDERED: MULT-1060 PO (12:05)
[2022-12-13] MEDS ORDERED: FLUT16SP22 NSEACH (12:05)
[2022-12-13 12:58] VITALS: BP 151/68
--- NOTE | 2022-12-13 14:34 | Consultation-Cardiology ---
HPI-Cardiology Cardiology Consultation Date of Consultation 12/13/22 Date of Admission Time Seen by Provider: 14:30 Indication: Shortness of breath HPI 67-year-old lady with history of hypertension. Came into the emergency room for increasing dyspnea. Reported worsening dyspnea on exertion. No chest pain. Had COVID about 3 months ago and reported that she never fully recovered. She felt somewhat better but for the past 3 to 4 days she was having worsening dyspnea again. No chest pain. No fever or chills. Home Medications & Allergies Allergies: Coded Allergies: lorazepam (Verified Allergy, Unknown, memory loss, 07/05/17) sulfamethoxazole (Verified Allergy, Unknown, NAUSEA, 07/05/17) trimethoprim (Verified Allergy, Unknown, NAUSEA, 07/05/17) Home Medication List Reviewed: Yes IDP-[id number] Hx Patient Social History Employed/Student: retired Smoking Status: Former Smoker Type Used: Cigarettes Recent Hopitalizations: No Have you traveled recently?: No Alcohol Use?: No Immunizations Up To Date Date of Pneumonia Vaccine: Oct 21, 2009 Date of Influenza Vaccine: Jul 21, 2012 Past Medical History Discussed below Family Medical History Significant Family History: No Pertinent Family Hx Review of Systems-General Review of Systems Constitutional: malaise, weakness EENTM: no symptoms reported Respiratory: see HPI, cough, dyspnea on exertion, short of breath Cardiovascular: see HPI; No chest pain, No edema, No Hx of Intervention, No palpitations, No syncope, No vascular heart diseas, No other Gastrointestinal: no symptoms reported Genitourinary: no symptoms reported Musculoskeletal: no symptoms reported Skin: no symptoms reported Psychiatric/Neurological: No Symptoms Reported Reviewed Test Results Reviewed Test Results Lab Laboratory Tests Test 12/12/22 20:33 12/12/22 20:41 12/13/22 04:34 Range/Units Influenza Type A (RT-PCR) Not Detected Not Detecte Influenza Type B (RT-PCR) Not Detected Not Detecte SARS-CoV-2 RNA (RT-PCR) Not Detected Not Detecte White Blood Count 10.1 9.1 4.3-11.0 10^3/uL Red Blood Count 3.77 L 3.67 L 3.80-5.11 10^6/uL Hemoglobin 8.5 L 8.3 L 11.5-16.0 g/dL Hematocrit 28 L 27 L 35-52 % Mean Corpuscular Volume 75 L 74 L 80-99 fL Mean Corpuscular Hemoglobin 23 L 23 L 25-34 pg Mean Corpuscular Hemoglobin Concent 30 L 30 L 32-36 g/dL Red Cell Distribution Width 19.0 H 18.6 H 10.0-14.5 % Platelet Count 242 195 130-400 10^3/uL Mean Platelet Volume 12.2 11.7 9.0-12.2 fL Immature Granulocyte % (Auto) 0 1 % Neutrophils (%) (Auto) 78 H 70 42-75 % Lymphocytes (%) (Auto) 13 20 12-44 % Monocytes (%) (Auto) 6 7 0-12 % Eosinophils (%) (Auto) 2 2 0-10 % Basophils (%) (Auto) 0 0 0-10 % Neutrophils # (Auto) 7.9 H 6.4 1.8-7.8 10^3/uL Lymphocytes # (Auto) 1.3 1.8 1.0-4.0 10^3/uL Monocytes # (Auto) 0.6 0.7 0.0-1.0 10^3/uL Eosinophils # (Auto) 0.2 0.2 0.0-0.3 10^3/uL Basophils # (Auto) 0.0 0.0 0.0-0.1 10^3/uL Immature Granulocyte # (Auto) 0.0 0.1 0.0-0.1 10^3/uL Prothrombin Time 14.1 12.2-14.7 SEC INR Comment 1.0 0.8-1.4 Sodium Level 138 140 135-145 MMOL/L Potassium Level 3.2 L 3.0 L 3.6-5.0 MMOL/L Chloride Level 104 104 98-107 MMOL/L Carbon Dioxide Level 23 24 21-32 MMOL/L Anion Gap 11 12 5-14 MMOL/L Blood Urea Nitrogen 10 9 7-18 MG/DL Creatinine 0.71 0.69 0.60-1.30 MG/DL Estimat Glomerular Filtration Rate 92 94 BUN/Creatinine Ratio 14 13 Glucose Level 118 H 130 H 70-105 MG/DL Calcium Level 8.9 8.8 8.5-10.1 MG/DL Corrected Calcium 9.5 9.4 8.5-10.1 MG/DL Total Bilirubin 0.4 0.6 0.1-1.0 MG/DL Aspartate Amino Transf (AST/SGOT) 16 16 5-34 U/L Alanine Aminotransferase (ALT/SGPT) 10 9 0-55 U/L Alkaline Phosphatase 65 59 40-136 U/L Troponin I < 0.028 <0.028 NG/ML B-Type Natriuretic Peptide 447.9 H <100.0 PG/ML Total Protein 6.9 6.7 6.4-8.2 GM/DL Albumin 3.3 3.2 3.2-4.5 GM/DL Physical Exam Physical Exam Vital Signs Vital Signs - First Documented 12/13/22 12/13/22 00:13 06:22 Temp 36.6 Resp 15 FiO2 40 Capillary Refill : Height, Weight, BMI Height: 5'9.00" Weight: 189lbs. 0.0oz. [id number]; 26.99 BMI Method: General Appearance: No Apparent Distress, WD/WN Eyes: Bilateral Eye Normal Inspection, Bilateral Eye PERRL, Bilateral Eye EOMI HEENT: PERRL/EOMI, TMs Normal, Normal ENT Inspection, Pharynx Normal, Moist Mucous Membranes Neck: Full Range of Motion, Normal Inspection, Non Tender, Supple, Carotid Bruit Respiratory: Chest Non Tender, Normal Breath Sounds, No Accessory Muscle Use, No Respiratory Distress Cardiovascular: Regular Rate, Rhythm, No Edema, No Gallop, No JVD, No Murmur, Normal Peripheral Pulses Gastrointestinal: Normal Bowel Sounds, No Organomegaly, No Pulsatile Mass, Non Tender, Soft Back: Normal Inspection, No CVA Tenderness, No Vertebral Tenderness Extremity: Normal Capillary Refill, Normal Inspection, Normal Range of Motion, Non Tender, No Calf Tenderness, No Pedal Edema Neurologic/Psychiatric: Alert, Oriented x3, No Motor/Sensory Deficits, Normal Mood/Affect Skin: Normal Color, Warm/Dry Lymphatic: No Adenopathy A/P-Cardiology Admission Diagnosis Shortness of breath Coronary artery disease Hypertension Hyperlipidemia Assessment/Plan Shortness of breath, worsening in the past 3 to 4 days. Patient had COVID 19 infection about 3 to 4 months ago reported recovery. Started on Lasix 40 twice daily and feeling better Chest x-ray suggestive of pulmonary infiltrate. Continue to monitor closely. Coronary artery disease, Abnormal stress test on July 01, 2019 revealing questionable mild ischemia of mid to apical anterolateral and inferolateral wall, normal LV, EF 77%, TID=1.37. Cardiac catheterization carried out on March 21, 2022 had stenting of the proximal LAD with 3 x 12 skypoint stent and stenting of the distal LAD with 2.5 x 12 skypoint stent with excellent results. Mid LAD has 40 to 50% stenosis treated conservatively otherwise mild to moderate coronary artery disease. Echocardiogram done on June 25, 2019 showing normal left ventricular size and systolic function estimated ejection fraction 6570 percent, grade 1 diastolic dysfunction, patent [place]. Pulmonary hypertension with PA pressure 45-50 mmHg Planning to repeat 2D echo Lower extremity pain, ultrasound was done in February 2019 showing mild diffuse atherosclerotic changes with no significant obstructive disease. Still having some peripheral neuropathy pain. Hypertension, restart home medication and monitor Hyperlipidemia maintained on Crestor, monitor lipids Nonobstructive carotid artery stenosis, continue to monitor Moderate sleep apnea, sleep study was done in April 2021, started using CPAP Diabetes mellitus, followed and managed by primary care physician, will hold metformin for 48 hours Generalized fatigue and loss of energy. Dyspnea on exertion, multiple risk factors for coronary artery disease, planning for left heart catheterization. Gastroparesis, diabetic, followed by Dr. Villarreal History of hysterectomy, cholecystectomy NATIVIDAD FOSTER MD Dec 13, 2022 14:34
--- NOTE | 2022-12-13 14:51 | History & Physical-Hospitalist ---
LEXI HDZ 12/13/22 1451: History of Present Illness HPI/Chief Complaint Yuliana Madrigal is a 67F with past medical hx of HTN, DM, hypothyroidism, HLD, CAD, and sleep apnea who presented to the ED after 3-4 days of worsening shortness of breath. In the ER she was found to have pulmonary infiltrates and an elevated BNP with normal troponins. She was placed on 5L by nasal cannula. She was also given lasix. This morning she is seen lying in bed comfortably now on 3L by nasal cannula with no shortness of breath. She denies chest pain and palpitations. She reports she had an URI for the last few weeks and felt recovered but began feeling worse again several days ago. She denies cough and runny nose at this time. Denies fever and chills overnight. Dyspnea is worsened by physical activity and improves with rest. Source: patient Exam Limitations: no limitations Date Seen 12/13/22 Time Seen by a Provider: 10:15 Attending Physician [place] PCP Admitting Physician: Gloria Maria DO Attending Physician: Gloria Maria DO Referring Physician Date of Admission Dec 12, 2022 at 21:24 Home Medications & Allergies Home Medications Reviewed patient Home Medication Reconciliation performed by pharmacy medication reconciliations deburr technician and/or nursing. Patients Allergies have been reviewed. Allergies Allergies Coded Allergies lorazepam (Verified Allergy, Unknown, memory loss, 07/05/17) sulfamethoxazole (Verified Allergy, Unknown, NAUSEA, 07/05/17) trimethoprim (Verified Allergy, Unknown, NAUSEA, 07/05/17) Past Qminvit-Qhkmnm-Mrbkgy Hx Patient Social History Marrital Status: Employed/Student: retired Tobacco Use?: No Smoking Status: Former Smoker Use of E-Cig and/or Vaping dev: No Substance use?: No Alcohol Use?: No Pt feels they are or have been: No Immunizations Up To Date Date of Influenza Vaccine: Jul 21, 2012 First/Initial COVID19 Vaccinat: UNKNOWN Second COVID19 Vaccination Jesus Manuel: UNKNOWN Date of Pneumonia Vaccine: Oct 21, 2009 Seasonal Allergies Seasonal Allergies: Yes Current Status Advance Directives: No Communicates: Verbally Primary Language: Setswana Preferred Spoken Language: Setswana Sensory deficits: Vision impairment Implanted or Applied Medical D: CPAP, Stents Past Medical History Surgeries: Gallbladder, Hysterectomy Sleep Apnea Hypertension Polyps Arthritis Anxiety, Depression Family Medical History Reviewed Nursing Family Hx Cancer (colon cancer in mother), Diabetes (sister) Review of Systems Constitutional: No chills, No fever EENTM: No nose congestion, No throat pain Respiratory: No cough; dyspnea on exertion; No wheezing Cardiovascular: No chest pain; Hx of Intervention (stents); No palpitations Gastrointestinal: No abdominal pain, No nausea, No vomiting Genitourinary: No dysuria, No hematuria Skin: No change in color Psychiatric/Neurological: Denies Headache; Weakness Physical Exam Physical Exam Vital Signs Vital Signs - First Documented 12/13/22 12/13/22 00:13 06:22 Temp 36.6 Resp 15 FiO2 40 Capillary Refill : Height, Weight, BMI Height: 5'9.00" Weight: 189lbs. 0.0oz. 85.840910ny; 26.99 BMI Method: General Appearance: No Apparent Distress, WD/WN HEENT: PERRL/EOMI, Moist Mucous Membranes Neck: Supple Respiratory: Chest Non Tender, No Accessory Muscle Use, Other (slightly decreased sounds at the bases) Cardiovascular: Regular Rate, Rhythm, Normal Peripheral Pulses Gastrointestinal: Non Tender, Soft Rectal: Deferred Extremity: Normal Capillary Refill, No Pedal Edema Neurologic/Psychiatric: Alert, Oriented x3, Normal Mood/Affect Skin: Normal Color, Warm/Dry; No Cyanosis Results Results/Procedures Labs Laboratory Tests 12/12/22 20:41 12/13/22 04:34 Patient resulted labs reviewed. Imaging [facility] [place], [place] NAME: YULIANA MADRIGAL Nancy [facility] REC#: [id number] PT STATUS: REG ER : 1955 PHYSICIAN: MANSI OSBORNE DO ADMIT DATE: 12/12/22/ER Signed Date of Exam:12/12/22 CHEST 1 VIEW, AP/PA ONLY CLINICAL INDICATIONS: Patient with chest pain. EXAM: Portable chest x-ray upright view. COMPARISON: Chest x-ray dated 03/21/2022. FINDINGS: Lungs/pleura: There is interval development of diffuse patchy airspace opacities and consolidation predominantly involving both midlung espinal and both lung bases. There is no pneumothorax. There is no pleural effusion. Mediastinum: Unremarkable. Pulmonary vasculature: Unremarkable. Heart: Unremarkable. Bones/extrathoracic soft tissue: There are degenerative spurs involving the thoracic spine. IMPRESSION: There is interval development of diffuse bilateral lung infiltrates concerning for pneumonia. Dictated by: Dictated on workstation # [id number] Dict: 12/12/222111 Trans: 12/12/222321 [facility] [id number] Interpreted by: RADHA GIORDANO MD Electronically signed by: RADHA GIORDANO MD 12/12/222321 Assessment/Plan Admission Diagnosis Hypoxia Elevated BNP Admission Status: Observation Reason for Inpatient Admission: Hypoxia Elevated BMP Assessment and Plan Acute resp distress Pulmonary edema Bilateral infiltrates on CXR Elevated BNP Etiology could be related to recent covid infection, cardiomyopathy with her past CAD hx, or CHF. Cards consulted, echo ordered for today Continue IV lasix Albuterol as needed for shortness of breath Anemia 8.3 hgb this morning MCV is low, could represent iron deficiency asymptomatic continue to monitor h/h, transfuse if less than 7 Hypokalemia 3.0 this morning replace as needed Could be worsened by lasix although it was low before first dose continue to monitor CAD Continue aspirin and plavix Patient will move to 4th floor today and begin working with therapy Can likely be discharge tomorrow pending results of echo. GLORIA MARIA DO 12/14/22 0516: Assessment/Plan Admission Diagnosis Admission Status: Observation Supervisory-Addendum Brief Verification & Attestation Participated in pt care: history, MDM, physical Personally performed: exam, history, MDM, supervision of care Care discussed with: Medical Student Procedures: n/a Results interpretation: Verified all documentation Verification and Attestation of Medical Student E/M Service A medical student performed and documented this service in my presence. I reviewed and verified all information documented by the medical student and made modifications to such information, when appropriate. I personally performed the physical exam and medical decision making. Gloria Maria Dec 14, 2022,05:16 LEXI HDZ Dec 13, 2022 14:51 GLORIA MARIA DO Dec 14, 2022 05:16
[2022-12-13 15:45] VITALS: BP 136/63
--- NOTE | 2022-12-13 20:39 | Discharge Summary ---
Discharge Summary Hospital Course Was the Problem List Reviewed?: Yes Problems/Dx: (1) Hypoxia (2) Pulmonary edema Qualifiers: Qualified Codes: J81.0 - Acute pulmonary edema Hospital Course Date of Admission: Dec 12, 2022 at 21:24 Admission Diagnosis : Family Physician/Provider: Arnulfo Brennan Date of Discharge: 12/13/22 Discharge Diagnosis: [ ] Hospital Course: [ ] Labs and Pending Lab Test: Laboratory Tests 12/12/22 20:41: White Blood Count 10.1, Red Blood Count 3.77L, Hemoglobin 8.5L, Hematocrit 28L, Mean Corpuscular Volume 75L, Mean Corpuscular Hemoglobin 23L, Mean Corpuscular Hemoglobin Concent 30L, Red Cell Distribution Width 19.0H, Platelet Count 242, Mean Platelet Volume 12.2, Immature Granulocyte % (Auto) 0, Neutrophils (%) (Auto) 78H, Lymphocytes (%) (Auto) 13, Monocytes (%) (Auto) 6, Eosinophils (%) (Auto) 2, Basophils (%) (Auto) 0, Neutrophils # (Auto) 7.9H, Lymphocytes # (Auto) 1.3, Monocytes # (Auto) 0.6, Eosinophils # (Auto) 0.2, Basophils # (Auto) 0.0, Immature Granulocyte # (Auto) 0.0, Prothrombin Time 14.1, INR Comment 1.0, Sodium Level 138, Potassium Level 3.2L, Chloride Level 104, Carbon Dioxide Level 23, Anion Gap 11, Blood Urea Nitrogen 10, Creatinine 0.71, Estimat Glomerular Filtration Rate 92, BUN/Creatinine Ratio 14, Glucose Level 118H, Calcium Level 8.9, Corrected Calcium 9.5, Total Bilirubin 0.4, Aspartate Amino Transf (AST/SGOT) 16, Alanine Aminotransferase (ALT/SGPT) 10, Alkaline Phosphatase 65, Troponin I < 0.028, B-Type Natriuretic Peptide 447.9H, Total Protein 6.9, Albumin 3.3 12/13/22 04:34: White Blood Count 9.1, Red Blood Count 3.67L, Hemoglobin 8.3L, Hematocrit 27L, Mean Corpuscular Volume 74L, Mean Corpuscular Hemoglobin 23L, Mean Corpuscular Hemoglobin Concent 30L, Red Cell Distribution Width 18.6H, Platelet Count 195, Mean Platelet Volume 11.7, Immature Granulocyte % (Auto) 1, Neutrophils (%) (Auto) 70, Lymphocytes (%) (Auto) 20, Monocytes (%) (Auto) 7, Eosinophils (%) (Auto) 2, Basophils (%) (Auto) 0, Neutrophils # (Auto) 6.4, Lymphocytes # (Auto) 1.8, Monocytes # (Auto) 0.7, Eosinophils # (Auto) 0.2, Basophils # (Auto) 0.0, Immature Granulocyte # (Auto) 0.1, Sodium Level 140, Potassium Level 3.0L, Chloride Level 104, Carbon Dioxide Level 24, Anion Gap 12, Blood Urea Nitrogen 9, Creatinine 0.69, Estimat Glomerular Filtration Rate 94, BUN/Creatinine Ratio 13, Glucose Level 130H, Calcium Level 8.8, Corrected Calcium 9.4, Total Bilirubin 0.6, Aspartate Amino Transf (AST/SGOT) 16, Alanine Aminotransferase (ALT/SGPT) 9, Alkaline Phosphatase 59, Total Protein 6.7, Albumin 3.2 Microbiology 12/12/22 Blood Culture - Preliminary, Resulted Gram Positive Cocci in Cluster See Comments Home Meds Active Reported Ibuprofen 200 Mg Tablet 600 Mg PO TID PRN Centrum Women Tablet (Multivitamin/Iron/Folic Acid) 18 Mg Iron-400 Mcg Tablet 1 Each PO DAILY Aspirin EC (Aspirin) 81 Mg Tablet.dr 81 Mg PO DAILY Pantoprazole Sodium 40 Mg Tablet.dr 40 Mg PO DAILY Clopidogrel (Clopidogrel Bisulfate) 75 Mg Tablet 75 Mg PO DAILY Atenolol 50 Mg Tablet 50 Mg PO DAILY Trulicity (Dulaglutide) 4.5 Mg/0.5 Ml Pen.injctr 4.5 Mg SQ SUN Fluconazole 100 Mg Tablet 100 Mg PO UD PRN Pregabalin 75 Mg Capsule 75 Mg PO 1200 Pregabalin 75 Mg Capsule 150 Mg PO BID TAKES 2 (75MG) CAPS Fluticasone Propionate 50 Mcg/Actuation [place].susp 1 [place] NSEACH DAILY PRN Xigduo Xr 5 mg-1,000 mg Tablet (Dapagliflozin/Metformin HCl) 5 Mg-1,000 Mg Tab.bp.24h 2 Ea PO DAILY TAKES 2 (5/1000MG) TABS LAST FILLED 06-11-2022 #180/90 DAY SUPPLY Levothyroxine Sodium 25 Mcg Tablet 25 Mcg PO DAILY LAST FILLED 06-08-2022 #90/90 DAY SUPPLY Amlodipine Besylate 5 Mg Tablet 5 Mg PO DAILY LAST FILLED 06-08-2022 #90/90 DAY SUPPLY Rosuvastatin Calcium 10 Mg Tablet 10 Mg PO DAILY Lisinopril 40 Mg Tablet 40 Mg PO DAILY Sertraline HCl 100 Mg Tablet 150 Mg PO DAILY TAKES 1 & (100MG) TABS Assessment/Pt Instructions left ama Discharge Planning: <30 minutes discharge planning Discharge Physical Examination Vital Signs Vital Signs Date Time Temp Pulse Resp B/P (MAP) Pulse Ox O2 Delivery O2 Flow Rate FiO2 12/13/22 15:45 36.4 80 18 136/63 (87) 91 Nasal Cannula 1.00 12/13/22 06:22 40 General Appearance: No Apparent Distress, WD/WN Allergies: Coded Allergies: lorazepam (Verified Allergy, Unknown, memory loss, 07/05/17) sulfamethoxazole (Verified Allergy, Unknown, NAUSEA, 07/05/17) trimethoprim (Verified Allergy, Unknown, NAUSEA, 07/05/17) Discharge Summary Date of Admission Dec 12, 2022 at 21:24 Date of Discharge Dec 13, 2022 at 17:36 Admission Diagnosis Hypoxia Elevated BNP ANEESH MARIA DO Dec 13, 2022 20:39
[2022-12-13] MEDS ORDERED: PREGABALIN 150 MG (LYRICA) CAPSULE PO SCH (21:00)
[2022-12-13] MEDS ORDERED: ENOXAPARIN 40 MG/0.4 ML (LOVENOX) SYR SC SCH ×2 (21:00)
[2022-12-14] MEDS ORDERED: PANTOPRAZOLE 40 MG (PROTONIX) TAB PO SCH (09:00)
[2022-12-14] MEDS ORDERED: SERTRALINE 100 MG (ZOLOFT) TAB PO SCH (09:00)
[2022-12-14] MEDS ORDERED: LEVOTHYROXINE 25 MCG (LEVOTHROID) TAB PO SCH (09:00)
[2022-12-14] MEDS ORDERED: metFORMIN 500 MG (GLUCOPHAGE) TAB PO SCH (09:00)
[2022-12-14] MEDS ORDERED: METFORMIN HCL PO SCH (09:00)
[2022-12-14] MEDS ORDERED: DAPAGLIFLOZIN PO SCH (09:00)
[2022-12-14] MEDS ORDERED: ROSUVASTATIN 10 MG (CRESTOR) TABLET PO SCH (09:00)
[2022-12-14] MEDS ORDERED: lisINopril 40 MG (PRINIVIL) TABLET PO SCH (09:00)
[2022-12-14] MEDS ORDERED: [UNRECOGNIZED DRUG - OTHER] PO SCH (09:00)
[2022-12-14] MEDS ORDERED: PRENATAL VITAMIN 1 EA TAB PO SCH (09:00)
[2022-12-14] MEDS ORDERED: EMPAGLIFLOZIN 10 MG TABLET (JARDIANCE) PO SCH (09:00)
== END 2022-12-13 17:36 | disposition left against medical advice (07) ==
LOC: ER 19:22 → EDUNIT# 20:02 → CSD 21:24 → UNDOADMOB 21:24 → CSD 12-13 14:39 → UNDODISOB 12-13 17:36
PROVIDERS: ADMIT Internal Medicine; ATTEND Internal Medicine
DX: J81.0 Acute pulmonary edema (principal); R09.02 Hypoxemia; R79.0 Abnormal level of blood mineral; I25.10 Atherosclerotic heart disease of native coronary artery without angina pectoris; I77.9 Disorder of arteries and arterioles, unspecified; I10 Essential (primary) hypertension; D64.9 Anemia, unspecified; E87.6 Hypokalemia; E78.5 Hyperlipidemia, unspecified; M79.669 Pain in unspecified lower leg; G47.30 Sleep apnea, unspecified; E11.43 Type 2 diabetes mellitus with diabetic autonomic (poly)neuropathy; K31.84 Gastroparesis; Z90.49 Acquired absence of other specified parts of digestive tract; Z79.899 Other long term (current) drug therapy; Z79.84 Long term (current) use of oral hypoglycemic drugs; Z87.891 Personal history of nicotine dependence; Z79.82 Long term (current) use of aspirin; Z79.01 Long term (current) use of anticoagulants; Z86.16 Personal history of COVID-19; Z90.710 Acquired absence of both cervix and uterus
CPT/HCPCS: 71045; 80053 ×2; 83880; 84484; 85025 ×2; 85610; 87040; 87636; 93005; 93041; 96376; 99284; C8929; G0378 ×2; 36415; 93306